=== PATIENT | male | born 1975 | race Caucasian/White ===

== ENCOUNTER 2022-07-17 11:54 | Emergency (ER) | payer MEDICARE, SELFPAY ==
[2022-07-17 12:03] VITALS: BP 108/73; PULSE 83; RESP 16; TEMP 36.7; O2SAT 100
[2022-07-17 12:49] LABS: Basophils # 0.1 10^3/uL (0.0-0.1); Basophils % 0.3 %; Eosinophils # 0.2 10^3/uL (0.0-0.8); Eosinophils % 1.2 %; Hematocrit 45.9 % (42.0-52.0); Hemoglobin 14.9 g/dL (11.7-16.6); Lymphocytes # 2.2 10^3/uL (0.8-4.8); Lymphocytes % 14.9 %; Mean Corpuscular HGB Conc 32.5 g/dL (30.0-36.0); Mean Corpuscular Hemoglobin 31.8 pg (28.0-34.0); Mean Corpuscular Volume 98.1 fl (80-94); Mean Platelet Volume 8.5 fL (7.4-10.4); Monocytes # 0.9 10^3/uL (0.2-0.9); Neutrophils # 11.47 10^3/uL (1.8-7.7); Neutrophils % 77.1 %; Nucleated Red Blood Cells % 0 %; Platelet Count 391 10^3/cmm (130-400); Red Blood Count 4.68 10^6/uL (4.1-5.3); Red Cell Distribution Width 13.3 % (12.1-15.1); White Blood Count 14.9 10^3/uL (4.0-10.0)
[2022-07-17 12:50] LABS: Add Urine Microscopic? NO; Charge for UA Resulting for Rev
[2022-07-17 12:56] LABS: Bilirubin Urine Neg (Negative); Blood Urine Neg (Negative); Glucose Urine UA Norm (Normal); Ketones Urine Negative (Negative); Leukocyte Esterase Urine Negative (Negative); Nitrate Urine Negative (Negative); Protein Urine Neg (Negative); Specific Gravity, Urine 1.015 (1.005-1.030); Urine Appearance Clear (CLEAR); Urine Color Yellow (Yellow); Urobilinogen Urine Norm (Negative); pH Urine 6.5 (5-7)
[2022-07-17 13:11] LABS: Alanine Aminotransferase 9 U/L (0-41); Alkaline Phosphatase 100 U/L (40-130); Anion Gap 14.2 (5-19); Aspartate Amino Transferase 13 U/L (0-40); Blood Urea Nitrogen 13 mg/dL (6-20); Calcium 8.8 mg/dL (8.5-10.5); Carbon Dioxide 25 mmol/L (22-29); Chloride 100 mmol/L (98-107); Globulin 3.1 g/dL (1.3-4.6); Glomerular Filtration Rate 143.2 mL/min (90-130); Glucose 88 mg/dL (65-115); Lipase 22 U/L (13-60); Osmolality Calculated 280 mOsm/kg (285-295); Potassium 4.2 mmol/L (3.5-5.1); Sodium 135 mmol/L (136-145); Total Bilirubin 0.2 mg/dL (0.15-1.2); Total Protein 7.1 g/dL (6.6-8.7)
== END 2022-07-17 14:36 | disposition left against medical advice (07) ==
PROVIDERS: Emergency Medicine; Emergency Provider Family Medicine
DX: Z53.21 Procedure and treatment not carried out due to patient leaving prior to being seen by health care provider (principal); R30.9 Painful micturition, unspecified
CPT/HCPCS: 36415; 80053; 81003; 83690; 85025

== ENCOUNTER → 2022-07-17 14:44 | Outpatient (BNVA) | payer MEDICARE, SELFPAY | PROVIDERS: Visit Provider Emergency Medicine | DX: R31.9 Hematuria, unspecified (principal); R10.9 Unspecified abdominal pain; Z12.5 Encounter for screening for malignant neoplasm of prostate; Z87.19 Personal history of other diseases of the digestive system | CPT/HCPCS: 81000 ==

== ENCOUNTER 2022-07-28 10:37 | Inpatient (IN) | payer MEDICARE, MEDICAID, SELFPAY ==
[2022-07-28] VITALS (8 sets, daily range): BP systolic 113–131; BP diastolic 73–85; PULSE 76–88; RESP 16–18; TEMP 36.8–37.2; O2SAT 95–98; BMI 23.1; BMI 23.7
--- NOTE | 2022-07-28 11:01 | CTR_ITS ---
PROCEDURE INFORMATION: Exam: CTA Chest With Contrast Exam date and time: 07/28/2022 12:10 PM Age: 47 years old Clinical indication: Abdominal pain; Periumbilical; Chest pressure; Additional info: Abd pain TECHNIQUE: Imaging protocol: Computed tomographic angiography of the chest with contrast. 3D rendering (Not supervised by radiologist): MIP and/or 3D reconstructed images were created by the technologist. Radiation optimization: All CT scans at this facility use at least one of these dose optimization techniques: automated exposure control; mA and/or kV adjustment per patient size (includes targeted exams where dose is matched to clinical indication); or iterative reconstruction. Contrast material: OMNI 350; Contrast volume: 95 ml; Contrast route: INTRAVENOUS (IV); COMPARISON: CR (CHEST, ) 07/28/2022 11:05 AM RADIATION DOSE METRICS: Total DLP (mGy-cm): 984.32 FINDINGS: Pulmonary arteries: No evidence of pulmonary embolism to the subsegmental level. Aorta: Unremarkable. No aortic aneurysm. No aortic dissection. Lungs: Mild dependent atelectasis. No consolidation. Pleural spaces: Unremarkable. No pneumothorax. No pleural effusion. Heart: No cardiomegaly. No coronary artery calcification. Lymph nodes: Unremarkable. No enlarged lymph nodes. Bones/joints: No acute or aggressive osseous lesion. Soft tissues: Unremarkable. PROCEDURE INFORMATION: Exam: CT Abdomen And Pelvis With Contrast Exam date and time: 07/28/2022 12:10 PM Age: 47 years old Clinical indication: Abdominal pain; Periumbilical; Chest pressure; Additional info: Abd pain TECHNIQUE: Imaging protocol: Computed tomography of the abdomen and pelvis with contrast. Note that enteric contrast was not given. Radiation optimization: All CT scans at this facility use at least one of these dose optimization techniques: automated exposure control; mA and/or kV adjustment per patient size (includes targeted exams where dose is matched to clinical indication); or iterative reconstruction. Contrast material: OMNI 350; Contrast volume: 95 ml; Contrast route: INTRAVENOUS (IV); COMPARISON: CR (CHEST, ) 07/28/2022 11:05 AM RADIATION DOSE METRICS: Total DLP (mGy-cm): 984.32 FINDINGS: Liver: Normal. No mass. Gallbladder and bile ducts: Normal. No calcified stones. No ductal dilation. Pancreas: Normal. No ductal dilation. Spleen: Normal. No splenomegaly. Adrenal glands: Normal. No mass. Kidneys and ureters: No hydronephrosis. No mass. Stomach and bowel: No obstruction. See Urinary bladder finding. Appendix: No evidence of appendicitis. Intraperitoneal space: See Urinary bladder finding. No pneumoperitoneum. Vasculature: Mild atherosclerotic calcification. No abdominal aortic aneurysm. Lymph nodes: Unremarkable. No enlarged lymph nodes. Urinary bladder: Marked irregular thickening of the bladder dome on the left; there is inflammatory thickening of the adjacent sigmoid colon with intervening fat stranding with small collection of fluid and air measuring approximately 2.7 x 1.5 cm on image 79 series 7 (see also coronal image 21 series 16) suspicious for a colovesical fistula. Reproductive: Unremarkable as visualized. Bones/joints: No acute or aggressive osseous lesion. Soft tissues: Unremarkable. CT/CT angio chest w abd pel w con IMPRESSION: No acute findings. IMPRESSION: Findings suspicious for colovesical fistula in the setting of sigmoid diverticulitis, with 2.7 x 1.5 cm potential developing abscess. Note that underlying malignancy of either the sigmoid or bladder is not excluded on this examination. Recommend referral to general surgery and/or urology.
--- NOTE | 2022-07-28 11:01 | XRR_ITS ---
PROCEDURE INFORMATION: Exam: XR Chest Exam date and time: 07/28/2022 11:05 AM Age: 47 years old Clinical indication: Shortness of breath; Additional info: SOB TECHNIQUE: Imaging protocol: Radiologic exam of the chest. Views: 1 view. COMPARISON: No relevant prior studies available. FINDINGS: Lungs: Unremarkable. No consolidation. Pleural spaces: Unremarkable. No pleural effusion. No pneumothorax. Heart/Mediastinum: Unremarkable. No cardiomegaly. Bones/joints: Unremarkable. XR/XR chest 1V portable [id number] IMPRESSION: No acute findings.
--- NOTE | 2022-07-28 11:01 | ECG_ITS ---
[facility] Test Date: 2022-07-28 Pat Name: Donaldo Montalvo Department: Room: Gender: Male Communications Technician: : 1975 Requested By: Patti Cleveland Order Number: [id number] Marbella MD: Harvey Ferguson M.D. Measurements Intervals [place] Rate: 79 P: 73 VT: 169 QRS: 79 QRSD: 87 T: 77 QT: 396 QTc: 456 Interpretive Statements SINUS RHYTHM No previous ECG available for comparison Electronically Signed On 07-28-2022 17:35:39 CDT by Harvey Ferguson M.D. [id number]
--- NOTE | 2022-07-28 11:01 | CTR_ITS ---
PROCEDURE INFORMATION: Exam: CT Head Without Contrast Exam date and time: 07/28/2022 11:54 AM Age: 47 years old Clinical indication: Pain; Headache; Additional info: IVY TECHNIQUE: Imaging protocol: Computed tomography of the head without contrast. Radiation optimization: All CT scans at this facility use at least one of these dose optimization techniques: automated exposure control; mA and/or kV adjustment per patient size (includes targeted exams where dose is matched to clinical indication); or iterative reconstruction. COMPARISON: No relevant prior studies available. RADIATION DOSE METRICS: Total DLP (mGy-cm): 1091.38 FINDINGS: Brain: Circumscribed rounded 4 mm hyperdense structure within the 4th ventricle to the left of midline measures up to 76 Hounsfield units on coronal image 54 series 7, potentially partially calcified but indeterminate. See also sagittal image 27 series 8 and coronal image 12 series 5. This appears too rounded and well circumscribed to represent hemorrhage. Normal buckley-white differentiation with no evidence of edema or territorial infarct. No extra-axial fluid collection. Cerebral ventricles: As above. No hydrocephalus. Paranasal sinuses: Mucosal thickening in throughout the bilateral ethmoid air cells with partially imaged layering fluid right maxillary sinus. Mastoid air cells: Visualized mastoid air cells are well aerated. Bones/joints: No acute fracture. Soft tissues: Unremarkable. CT/CT head wo con* [id number] IMPRESSION: 1. Indeterminate 4 mm circumscribed rounded hyperdense structure within the 4th ventricle to the left of midline. This may be partially calcified although this cannot be confirmed on this exam. This appears too round and circumscribed to represent hemorrhage. Consider follow-up MRI with and without contrast to better characterize. 2. Mucosal thickening bilateral ethmoid air cells and layering fluid right maxillary sinus, correlate for sinusitis.
[2022-07-28] MEDS: HYDROmorphone 1 mg/mL INJ 1 mL IVP (11:19)
[2022-07-28] MEDS: ondansetron 2 mg/ML SDV 2 mL 4 MG IVP (11:19)
[2022-07-28 11:40] LABS: Basophils % 0.3 %; Eosinophils # 0.2 10^3/uL (0.0-0.8); Eosinophils % 1.8 %; Hematocrit 42.8 % (42.0-52.0); Mean Corpuscular HGB Conc 32.7 g/dL (30.0-36.0); Mean Corpuscular Hemoglobin 31.6 pg (28.0-34.0); Mean Corpuscular Volume 96.6 fl (80-94); Mean Platelet Volume 9.4 fL (7.4-10.4); Monocytes # 1.1 10^3/uL (0.2-0.9); Monocytes % 10.8 %; Neutrophils % 66.8 %; Nucleated Red Blood Cells % 0 %; Platelet Count 384 10^3/cmm (130-400); Red Blood Count 4.43 10^6/uL (4.1-5.3); Red Cell Distribution Width 13.4 % (12.1-15.1)
[2022-07-28 12:03] LABS: INR 0.89 (0.8-1.2)
[2022-07-28 12:08] LABS: Troponin(5th) Baseline 6 ng/L (0-15)
[2022-07-28 12:15] LABS: Add Urine Microscopic? NO; Charge for UA Resulting for Rev
--- NOTE | 2022-07-28 12:15 | W.ED.GENADLT ---
HPI - General Adult General: Chief complaint: General Medical Stated complaint: Low BP, SOB Time Seen by Provider: 07/28/22 10:43 Source: patient Mode of arrival: ambulatory Limitations: no limitations History of Present Illness: 47-year-old male is here with multiple complaints he states has been having lower abdominal pain along with chest pain shortness of breath headaches he states has been going on for weeks. States he is seen by his PCP a week ago informed he could have diverticulitis was written antibiotic he never had any imaging or blood test. States his main pain is in his mid abdomen and he denies any fever denies any worsening proved factors he is in no distress here. Associated symptoms: Reports chest pain, headache(s) and nausea; Deny dyspnea or rash Review of Systems Const: Denies: fever(s), chills, body aches or change in appetite Eyes: Denies: blurry vision or eye discomfort ENMT: Denies: throat pain or dental pain Card: Reports: chest pain Resp: Denies: dyspnea GI: Reports: abdominal pain and nausea : Denies: dysuria Musc: Denies: neck pain or back pain Skin/Breast: Denies: rash Neuro: Reports: headache(s) Psych: Denies: depression John/Lymph: Denies: easy bruising All/Imm: Denies: urticaria PFSH ED PFSH: Medical History (Updated 07/28/22 @ 16:36 by Xochitl Cleveland MD) Diverticulitis Social History (Updated 07/28/22 @ 12:16 by Xochitl Cleveland MD) Substance/Drug Use: unknown Physical Exam Const: COMMON NORMALS: no acute distress, patient oriented x3 and healthy appearing HENMT: COMMON NORMALS: normocephalic and atraumatic HEAD & SCALP: normocephalic and atraumatic Eye: COMMON NORMALS: Equal, round and reactive pupils present and EOMs intact bilaterally PUPIL: Yes Equal, round and reactive pupils present Neck/C-Spine: COMMON NORMALS: full ROM and supple Chest: COMMONS NORMALS: normal inspection of the chest and normal palpation of entire chest wall Resp: COMMON NORMALS: normal respiratory effort, No retractions, No use of accessory muscles and clear to auscultation bilaterally AUSCULTATION: clear to auscultation bilaterally Cardio: COMMON NORMALS: regular rate, regular rhythm and No murmurs present (Cardio) RATE: regular rate RHYTHM: regular rhythm GI: COMMON NORMALS: Normal to inspection, nondistended, normoactive bowel sounds present, Soft to palpation, non-tender and no masses PALPATION: Yes Soft to palpation Extremity: COMMON NORMALS: normal to inspection and full ROM Neuro: COMMON NORMALS: patient oriented x3, moves all extremities and no focal motor deficits Psych: COMMON NORMALS: mental status grossly normal, Normal thought process present and cooperative THOUGHT PROCESS: Normal thought process present Skin: COMMON NORMALS: no rashes or lesions noted and no wounds GENERAL SKIN EXAM: no rashes or lesions noted Course Vital Signs: Vital signs: Vital Signs Pulse Rate 77 07/28/22 15:00 Respiratory Rate 17 07/28/22 15:00 Blood Pressure 119/73 07/28/22 15:00 Pulse Oximetry 98 07/28/22 15:00 Oxygen Delivery Me thod 07/28/22 14:00 MDM - General Adult Medical Decision Making Patient presents here with abdominal pain he was found to have diverticulitis with a possible small abscess with colovesicular fistula. I did speak to urology along with surgery both are consulted patient started on IV antibiotics I spoke to the hospitalist who is admitting. 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 Lab Data : 07/28/22 11:31 07/28/22 11:31 Radiology Impressions Chest X-Ray 07/28/22 11:01 IMPRESSION: No acute findings. Chest/Abdomen/Pelvis CT 07/28/22 11:01 IMPRESSION: No acute findings. IMPRESSION: Findings suspicious for colovesical fistula in the setting of sigmoid diverticulitis, with 2.7 x 1.5 cm potential developing abscess. Note that underlying malignancy of either the sigmoid or bladder is not excluded on this examination. Recommend referral to general surgery and/or urology. ADDENDUM: 07/28/22 8040 Addendum: Findings discussed with and acknowledged by XOCHITL Loredo at 07/28/2022 1:08 PM CDT with any questions answered. Head CT 07/28/22 11:01 IMPRESSION: 1. Indeterminate 4 mm circumscribed rounded hyperdense structure within the 4th ventricle to the left of midline. This may be partially calcified although this cannot be confirmed on this exam. This appears too round and circumscribed to represent hemorrhage. Consider follow-up MRI with and without contrast to better characterize. 2. Mucosal thickening bilateral ethmoid air cells and layering fluid right maxillary sinus, correlate for sinusitis. 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 Interval follow-up is recommended. Laboratory Results WBC 10.0 10^3/uL (4.0-10.0) 07/28/22 11:31 RBC 4.43 10^6/uL (4.1-5.3) 07/28/22 11:31 Hgb 14.0 g/dL (11.7-16.6) 07/28/22 11:31 Hct 42.8 % (42.0-52.0) 07/28/22 11:31 MCV 96.6 fl (80-94) H 07/28/22 11:31 MCH 31.6 pg (28.0-34.0) 07/28/22 11:31 MCHC 32.7 g/dL (30.0-36.0) 07/28/22 11:31 RDW 13.4 % (12.1-15.1) 07/28/22 11:31 Plt Count 384 10^3/cmm (130-400) 07/28/22 11:31 MPV 9.4 fL (7.4-10.4) 07/28/22 11:31 Neut % (Auto) 66.8 % 07/28/22 11:31 Lymph % (Auto) 20.0 % 07/28/22 11:31 [place] % (Auto) 10.8 % 07/28/22 11:31 Eos % (Auto) 1.8 % 07/28/22 11:31 Baso % (Auto) 0.3 % 07/28/22 11:31 Neut # (Auto) 6.70 10^3/uL (1.8-7.7) 07/28/22 11:31 Lymph # (Auto) 2.0 10^3/uL (0.8-4.8) 07/28/22 11:31 [place] # (Auto) 1.1 10^3/uL (0.2-0.9) H 07/28/22 11:31 Eos # (Auto) 0.2 10^3/uL (0.0-0.8) 07/28/22 11:31 Baso # (Auto) 0.0 10^3/uL (0.0-0.1) 07/28/22 11:31 Nucleated RBC % (auto) 0 % 07/28/22 11:31 Nucleated RBCs # 0.0 /100WBC 07/28/22 11:31 PT 12.30 SECONDS (12.1-14.9) 07/28/22 11:31 INR 0.89 (0.8-1.2) 07/28/22 11:31 Sodium 137 mmol/L (136-145) 07/28/22 11:31 Potassium 3.9 mmol/L (3.5-5.1) 07/28/22 11:31 Chloride 103 mmol/L (98-107) 07/28/22 11:31 Carbon Dioxide 21 mmol/L (22-29) L 07/28/22 11:31 Anion Gap 16.9 (5-19) 07/28/22 11:31 BUN 11 mg/dL (6-20) 07/28/22 11:31 Creatinine 0.6 mg/dL (0.7-1.2) L 07/28/22 11:31 GFR Calculation 143.2 mL/min (90-130) H 07/28/22 11:31 Glucose 98 mg/dL (65-115) 07/28/22 11:31 Calculated Osmolality 283 mOsm/kg (285-295) L 07/28/22 11:31 Calcium 8.8 mg/dL (8.5-10.5) 07/28/22 11:31 Total Bilirubin 0.2 mg/dL (0.15-1.2) 07/28/22 11:31 AST 14 U/L (0-40) 07/28/22 11:31 ALT 10 U/L (0-41) 07/28/22 11:31 Alkaline Phosphatase 93 U/L (40-130) 07/28/22 11:31 Troponin T Baseline 6 ng/L (0-15) 07/28/22 11:31 Troponin T 120 Minute 6.00 ng/L (0-15) 07/28/22 13:23 Delta Troponin T 0 ABS# (0-10) 07/28/22 13:23 NT-Pro-B Natriuret Pep 49 pg/mL (0-125) 07/28/22 11:31 Total Protein 7.5 g/dL (6.6-8.7) 07/28/22 11:31 Albumin 3.9 g/dL (3.5-5.2) 07/28/22 11:31 Globulin 3.6 g/dL (1.3-4.6) 07/28/22 11:31 Lipase 21 U/L (13-60) 07/28/22 11:31 Urine Color Yellow (Yellow) 07/28/22 11:31 Urine Appearance Clear (CLEAR) 07/28/22 11:31 Urine pH 6 (5-7) 07/28/22 11:31 Ur Specific [place] 1.010 (1.005-1.030) 07/28/22 11:31 Urine Protein Neg (Negative) 07/28/22 11:31 Urine Glucose (UA) Norm (Normal) 07/28/22 11:31 Urine Ketones Negative (Negative) 07/28/22 11:31 Urine Blood Neg (Negative) 07/28/22 11:31 Urine Nitrate Negative (Negative) 07/28/22 11:31 Urine Bilirubin Neg (Negative) 07/28/22 11:31 Urine Urobilinogen Norm mg/dL (Negative) 07/28/22 11:31 Ur Leukocyte Esterase Negative (Negative) 07/28/22 11:31 EKG Data EKG 1: I personally reviewed and interpreted this EKG as follows: EKG interpretation date: 07/28/22 EKG interpretation time: 11:42 Interpretation: nsr hr [address] or t wave abnormalities qrs 87 qtc 431 Computer generated interpretation: Chest X-Ray 07/28/22 11:01 IMPRESSION: No acute findings. Chest/Abdomen/Pelvis CT 07/28/22 11:01 IMPRESSION: No acute findings. IMPRESSION: Findings suspicious for colovesical fistula in the setting of sigmoid diverticulitis, with 2.7 x 1.5 cm potential developing abscess. Note that underlying malignancy of either the sigmoid or bladder is not excluded on this examination. Recommend referral to general surgery and/or urology. ADDENDUM: 07/28/22 1310 Addendum: Findings discussed with and acknowledged by XOCHITL Loredo at 07/28/2022 1:08 PM CDT with any questions answered. Head CT 07/28/22 11:01 IMPRESSION: 1. Indeterminate 4 mm circumscribed rounded hyperdense structure within the 4th ventricle to the left of midline. This may be partially calcified although this cannot be confirmed on this exam. This appears too round and circumscribed to represent hemorrhage. Consider follow-up MRI with and without contrast to better characterize. 2. Mucosal thickening bilateral ethmoid air cells and layering fluid right maxillary sinus, correlate for sinusitis. 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 Interval follow-up is recommended. Discharge Plan Discharge Patient Disposition: Admitted As Inpatient Clinical Impression: Diverticulitis, [place]-vesical fistula Prescriptions: No Action amoxicillin-pot clavulanate 875-125 mg tablet 1 tab PO BID 10 Days Qty: 20 0RF ibuprofen 200 mg Capsule 1,600 mg PO TID PRN (Reason: Pain) Coding Level of Care Code ED Folder Seamer Automatic for Chg Fwd Exam Comprehensive
[2022-07-28] MEDS: iohexol 350 mg/mL 100 mL Btl IV (12:19)
[2022-07-28 12:23] LABS: Bilirubin Urine Neg (Negative); Blood Urine Neg (Negative); Glucose Urine UA Norm (Normal); Ketones Urine Negative (Negative); Leukocyte Esterase Urine Negative (Negative); Nitrate Urine Negative (Negative); Protein Urine Neg (Negative); Urine Appearance Clear (CLEAR); Urine Color Yellow (Yellow); Urobilinogen Urine Norm (Negative); pH Urine 6 (5-7)
[2022-07-28 12:25] LABS: Alanine Aminotransferase 10 U/L (0-41); Albumin Level 3.9 g/dL (3.5-5.2); Alkaline Phosphatase 93 U/L (40-130); Anion Gap 16.9 (5-19); Aspartate Amino Transferase 14 U/L (0-40); Blood Urea Nitrogen 11 mg/dL (6-20); Calcium 8.8 mg/dL (8.5-10.5); Carbon Dioxide 21 mmol/L (22-29); Chloride 103 mmol/L (98-107); Globulin 3.6 g/dL (1.3-4.6); Glomerular Filtration Rate 143.2 mL/min (90-130); Glucose 98 mg/dL (65-115); Lipase 21 U/L (13-60); NT Pro B Type Natriuretic Pept 49 pg/mL (0-125); Osmolality Calculated 283 mOsm/kg (285-295); Potassium 3.9 mmol/L (3.5-5.1); Sodium 137 mmol/L (136-145); Total Bilirubin 0.2 mg/dL (0.15-1.2); Total Protein 7.5 g/dL (6.6-8.7)
--- NOTE | 2022-07-28 12:42 | MRR_ITS ---
PROCEDURE INFORMATION: Exam: MR Head Without Contrast Exam date and time: 07/28/2022 2:39 PM Age: 47 years old Clinical indication: Abnormal findings; Abnormal radiologic findings of head/skull; Not specified; Patient HX: Radiologist recommended per CT report; Additional info: CATA TECHNIQUE: Imaging protocol: Magnetic resonance imaging of the head without contrast. COMPARISON: CT head wo con* [id number] 07/28/2022 11:54 AM FINDINGS: Brain: No hemorrhage, mass effect or midline shift. No white matter abnormality identified. No evidence of restricted diffusion to suggest acute/subacute infarct. No intra-axial or extra-axial fluid collection seen. Cerebral ventricles: Within the inferior left 4th ventricle/area of hyperdense lesion identified on CT head, there is a 3 mm focus demonstrating T1 isointense signal, mild T2 hyperintense signal, minimal increased signal on DWI images, minimal decreased signal in ADC map, minimal low signal on SWI images, and no enhancement. Bones/joints: Unremarkable. Paranasal sinuses: Pansinus mucosal thickening is present. Mastoid air cells: Normal as visualized. No mastoid effusion. Orbital cavities: Unremarkable. Soft tissues: Unremarkable. 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 Interval follow-up is recommended.
[2022-07-28] MEDS: aztreonam 2,000 MG in sodium chloride 0.9% (plus) 100 ML 200 MG IV (13:52)
[2022-07-28 14:50] LABS: Troponin 5 2HR Delta 0 ABS# (0-10)
[2022-07-28] MEDS: gadobenate dimeglumine 20 mL vial IV (14:58)
[2022-07-28] MEDS: metroNIDAZOLE IV 500 MG/100 ML PREMIX 100 MG IV (15:29)
--- NOTE | 2022-07-28 16:05 | P.CONIM_ITS ---
Providers/Reason For Consult Consulting Physician/Specialty*: Jeff Landeros/Gen Surg Reason for Consult*: Abdominal pain History of Present Illness History of Present Illness Donaldo Montalvo is a 47 year old male He is legally blind. History of iritis for about 20 years, he has only minimal central vision in the left eye. History of diverticulitis for about 10 years. He was in the hospital several times, he can describe at least 4 severe episodes that he was treated for diverticulitis before. He never had a colonoscopy. His father had a history of rectal cancer. At age 70. Received chemo and surgery, likely adenocarcinoma This current episode started about 4 months ago. He was complaining of abdominal pain, nausea, painful urination. He was living in [place] and was not able to receive any medical care. His condition was getting progressively worse. Eventually, his sister was able to move him to [place]. He was recently started on antibiotics, however, his condition was rapidly deteriorating and he decided to seek medical attention. He is having multiple bowel movements throughout the day, they are very small. No blood in the stool. He has poor oral hygiene. History of neck abscesses in the past. He is also having some pain in his neck on the left. He smokes tobacco, but drinks alcohol He is accompanied today by his sister and her Review of Systems Narrative: 10 point review of systems is negative except as per HPI Medications/Allergies Home Medications Medication Instructions Recorded Confirmed Last Taken Type amoxicillin 875 mg-potassium 1 tab PO BID 10 days #20 tabs 07/19/22 07/28/22 07/28/22 Rx clavulanate 125 mg tablet ibuprofen 200 mg capsule 1,600 mg PO TID PRN Pain 07/28/22 07/28/22 07/28/22 History Allergies Allergy/AdvReac Type Severity Reaction Status Date / Time ciprofloxacin Allergy Severe ADR-Halluci Verified 07/17/22 12:03 nating PFS Acute PFSH: Medical History (Updated 07/28/22 @ 16:11 by Jeff Landeros MD) Diverticulitis Social History (Updated 07/28/22 @ 12:16 by Patti Cleveland MD) Substance/Drug Use: unknown Vitals/I&O/Wt Last Vital Signs Pulse 77 07/28/22 15:00 Resp 17 07/28/22 15:00 BP 119/73 07/28/22 15:00 Pulse Ox 98 07/28/22 15:00 O2 Del Method 07/28/22 14:00 07/28/22 07/28/22 07/28/22 06:59 14:59 22:59 Intake Total 100 / 100 Balance 100 / 100 Weight last 48 hrs Weight 180 lb Physical Exam Narrative: General: No acute distress Psych: [AAOx3] Eyes: [sclerae are white] Head/ENT: [normocephalic, symmetric] CV: [regular] pulse, [tachychardic], no JVD Lungs: [symmetrical chest rise] Abdomen: [soft, ND, tender to palpation in the lower quadrants. No peritoneal signs. No palpable masses.] Ext: [no obvious traumatic deformities] Skin: warm Data : 07/28/22 11:31 07/28/22 11:31 Micro: Microbiology 07/28/22 13:27 Blood Culture - Preliminary Blood SPECIMEN COLLECTED 07/28/22 13:23 Blood Culture - Preliminary Blood SPECIMEN COLLECTED Other data: I personally reviewed CT scan images and radiology report. Consistent with acute diverticulitis versus malignancy in the location of the mid sigmoid/bladder contact. No free air. Small abscesses present. No not much intraperitoneal fluid around to suggest perforation. I do not see any air in the bladder. Report of the CT scan of the head showed a 4 mm lesion, MRI is pending to rule out malignancy. A&P Assessment and plan (1) Acute diverticulitis: Status: Acute (2) Cystitis: Status: Acute (3) Legally blind: Status: Acute (4) Poor oral hygiene: Status: Acute Plan This is at least fourth of fifth episodes of acute diverticulitis. Now severe inflammation between the gallbladder and sigmoid. No evidence of perforation. First step will be to manage the patient with IV antibiotics to cool the pathologic process down. No indications for emergent surgery at this time. His abdomen is soft and he has no peritoneal signs. He has normal white blood cell count. His heart rate is 77 and blood pressure 119/73. No evidence of septic shock as well. If patient responds to treatment with antibiotics, the next step will be a limited endoscopy to rule out malignancy in the large intestine. I do not see any colovesical fistula right now, however, I think urology consult is necessary to perform cystoscopy and evaluate the bladder to rule out malignancy. Results of the MRI pending to rule out malignancy. In case the lesion is real, it may represent metastasis versus infectious origin. Given his history of a bscesses in the neck as well as diverticulitis, septic emboli are possible. -Zosyn IV, n.p.o., okay for ice with sips of water and meds, Lovenox for DVT prophylaxis -CBC tomorrow a.m. -Urology consult I discussed the diagnosis, natural history of diverticulitis with the patient, and his family. All questions were answered.. Patient agreed to proceed with the plan as outlined above. I also explained the patient that my assignment ends tomorrow and another surgeon will be seeing and taking care of him Coding Level of Care Code Acute Training And Development Director for nikita Arrington Diagnoses Acute diverticulitis K57.92 Cystitis N30.90 Legally blind H54.8 Poor oral hygiene Z91.89
--- NOTE | 2022-07-28 16:16 | ECG_ITS ---
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 Measurements Intervals [place] Rate: 79 P: 73 VA: 168 QRS: 80 QRSD: 89 T: 75 QT: 396 QTc: 454 Interpretive Statements SINUS RHYTHM Compared to ECG 07/28/2022 11:42:21 No significant changes Electronically Signed On 07-28-2022 17:38:33 CDT by Harvey Ferguson M.D. [email or web address]
--- NOTE | 2022-07-28 17:36 | P.HP_ITS ---
Providers/Chief Complaint Admitting Physician: Chaim Montgomery MD Chief Complaint: Low BP, SOB History of Present Illness Donaldo Montalvo is a 47 year old male with past medical history of iritis , legally blind , past history of recurrent diverticulitis started about 10 years back in the last 4 months has worsened significantly with recurrent hospitalization at least 3 treated with IV antibiotics, came in today with chief complaint of wor sening lower abdominal pain ,nausea, patient to tell us that occasionally he has painful urination, but has not been diagnosed with recurrent polymicrobial UTI, denies any foul-smelling urine, bloody urine ,recent fever chills. No prior colonoscopy, father has history of rectal cancer. Patient is also complaining of multiple bowel movements throughout the day in the recent few days.patient denies any IV drug use, he does smoke. He was initially living in [place] and since he was not getting appropriate medical care he moved to [place] to his sister's house. Upon arrival in the ER he was worked up for above-mentioned complaint: Pertinent imaging studies done in the ER: CT head wo con: Indeterminate 4 mm circumscribed rounded hyperdense structure within the 4th ventricle to the left of midline. This may be partially calcified although this cannot be confirmed on this exam. This appears too round and circumscribed to represent hemorrhage. Consider follow-up MRI with and without contrast to better characterize. 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 CT angio chest w abd pel w con: Marked irregular thickening of the bladder dome on the left; there is inflammatory thickening of the adjacent sigmoid colon with intervening fat stranding with small collection of fluid and air measuring approximately 2.7 x 1.5 cm suspicious for a colovesical fistula. Pertinent labs: WBC 10, H&H 14/ 42 PLT: 384 , sodium 137 potassium 3.9, BUN /SCR : 09/15 , u rinalysis clean Review of Systems General: Reports: 10 or more systems reviewed and unremarkable except in HPI and below Const: Denies: fever(s), chills, body aches, change in appetite or diaphoresis Card: Denies: palpitations, edema, swelling of feet/ankles, dyspnea on exertion, orthopnea or leg pain with exertion Resp: Denies: dyspnea, productive cough, wheezing or pain on inspiration GI: Reports: abdominal pain and nausea; Denies: vomiting, diarrhea or constipation : Reports: difficulty urinating; Denies: flank pain Musc: Denies: back pain, extremity pain or extremity swelling Neuro: Denies: headache(s), difficulty walking or confusion Medications/Allergies Home Medications Medication Instructions Recorded Confirmed Last Taken Type amoxicillin 875 mg-potassium 1 tab PO BID 10 days #20 tabs 07/19/22 07/28/22 07/28/22 Rx clavulanate 125 mg tablet ibuprofen 200 mg capsule 1,600 mg PO TID PRN Pain 07/28/22 07/28/22 07/28/22 History Allergies Allergy/AdvReac Type Severity Reaction Status Date / Time ciprofloxacin Allergy Severe ADR-Halluci Verified 07/17/22 12:03 nating PFSH Acute PFSH: Medical History (Updated 07/28/22 @ 16:36 by Patti Cleveland MD) Diverticulitis Social History (Updated 07/28/22 @ 12:16 by Patti Cleveland MD) Substance/Drug Use: unknown Vitals/I&O/Wt Last Vital Signs Pulse 77 07/28/22 15:00 Resp 17 07/28/22 15:00 BP 125/80 07/28/22 16:30 Pulse Ox 95 07/28/22 16:30 O2 Del Method 07/28/22 14:00 07/28/22 07/28/22 07/28/22 06:59 14:59 22:59 Intake Total 100 / 100 100 / 200 Balance 100 / 100 100 / 200 Weight last 48 hrs Weight 81.647 kg Physical Exam Const: COMMON NORMALS: patient oriented x3 Resp: COMMON NORMALS: normal respiratory effort, No retractions, No use of accessory muscles and clear to auscultation bilaterally EFFORT & INSPECTION: Yes symmetric chest movement AUSCULTATION: clear to auscultation bilaterally Cardio: COMMON NORMALS: regular rate, regular rhythm, S1 normal heart sound present, S2 normal heart sound present, No gallops present (Cardio), No murmurs present (Cardio), No rub (Cardio) and Peripheral pulses 2+ throughout RATE: regular rate RHYTHM: regular rhythm HEART SOUNDS: S1 normal heart sound present and S2 normal heart sound present PERIPHERAL PULSES: Peripheral pulses 2+ throughout GI: COMMON NORMALS: Normal to inspection, nondistended, normoactive bowel sounds present, Soft to palpation, non-tender, No hepatosplenomegaly present and no masses AUSCULTATION: Yes normoactive bowel sounds PALPATION: Yes Soft to palpation and Yes No hepatosplenomegaly present RECTAL EXAM: Yes deferred Extremity: COMMON NORMALS: no clubbing, cyanosis or edema and no pedal edema Neuro: COMMON NORMALS: patient oriented x3 Data : 07/28/22 11:31 07/28/22 11:31 Micro: Microbiology 07/28/22 13:27 Blood Culture - Preliminary Blood SPECIMEN COLLECTED 07/28/22 13:23 Blood Culture - Preliminary Blood SPECIMEN COLLECTED A&P Assessment and plan (1) [place]-vesical fistula: Status: Acute (2) Legally blind: Status: Acute (3) Acute diverticulitis: Status: Acute Plan 47 year old male with past medical history of iritis , legally blind , past history of recurrent diverticulitis started about 10 years back in the last 4 months has worsened significantly with recurrent hospitalization at least 3 treated with IV antibiotics, came in today with chief complaint of worsening lower abdominal pain ,nausea, patient to tell us that occasionally he has painful urination, but has not been diagnosed with recurrent polymicrobial UTI, denies any foul-smelling urine, bloody urine ,recent fever chills. No prior colonoscopy, father has history of rectal cancer. Patient is also complaining of multiple bowel movements throughout the day in the recent few days.patient denies any IV drug use, he does smoke. Assessment: Recurrent diverticulitis ??? Colovesical fistula History of iritis Legally blind Plan: Continue IV antibiotics Follow blood culture Follow stool studies Pain control Surgery on board Urology on board CODE STATUS: Full code DVT prophylaxis: On Lovenox Attestations Medical Necessity Statement*: Patient in hospital for management of diverticulitis. Need for IV antibiotics, anticipated length of stay greater than 2 midnights. Time Spent in Patient Care: Greater than 35 minutes (>than 50% of time spent in counselling and/or direct pt care on unit) . Coding Level of Care Code Acute Stair Builder for Chg Fwd Exam Detailed Diagnoses [place]-vesical fistula N32.1 Legally blind H54.8 Acute diverticulitis K57.92
--- NOTE | 2022-07-28 18:05 | ECG_ITS ---
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 Measurements Intervals Thayer Rate: 73 P: 70 TX: 161 QRS: 83 QRSD: 95 T: 75 QT: 400 QTc: 443 Interpretive Statements SINUS RHYTHM Compared to ECG 07/28/2022 16:16:14 No significant changes Electronically Signed On 07-29-2022 7:37:55 CDT by Harvey Ferguson M.D. [id number]
[2022-07-28] MEDS: enoxaparin 30 mg/0.3 mL Syringe SUBCUT (18:09)
[2022-07-28] MEDS: sodium chloride 0.9% 1,000 ML 75 ML IV (18:09)
[2022-07-28] MEDS: famotidine 20 mg/2 mL INJ IVP (18:10)
[2022-07-28 18:23] LABS: Troponin 5 6HR Delta 0 ng/L (0-12)
[2022-07-28] MEDS: acetaminophen 325 mg Tablet 650 MG PO (20:44)
[2022-07-28] MEDS: morphine 4 mg/mL SDV 1 mL 2 MG IVP (21:23)
[2022-07-29] VITALS (7 sets, daily range): BP systolic 94–124; BP diastolic 55–77; PULSE 65–91; RESP 17–18; TEMP 36.4–36.8; O2SAT 90–99
[2022-07-29 04:53] LABS: Basophils % 0.5 %; Eosinophils # 0.3 10^3/uL (0.0-0.8); Eosinophils % 4.2 %; Hematocrit 47.8 % (42.0-52.0); Hemoglobin 14.5 g/dL (11.7-16.6); Lymphocytes # 1.7 10^3/uL (0.8-4.8); Lymphocytes % 28.8 %; Mean Corpuscular HGB Conc 30.3 g/dL (30.0-36.0); Mean Corpuscular Hemoglobin 30.9 pg (28.0-34.0); Mean Corpuscular Volume 101.7 fl (80-94); Mean Platelet Volume 9.1 fL (7.4-10.4); Monocytes # 0.7 10^3/uL (0.2-0.9); Monocytes % 11.2 %; Neutrophils # 3.28 10^3/uL (1.8-7.7); Neutrophils % 54.8 %; Nucleated Red Blood Cells % 0 %; Platelet Count 335 10^3/cmm (130-400); Red Cell Distribution Width 13.4 % (12.1-15.1)
[2022-07-29 05:05] LABS: INR 0.94 (0.8-1.2)
[2022-07-29] MEDS: acetaminophen 325 mg Tablet 650 MG PO (05:12)
[2022-07-29 05:19] LABS: Alanine Aminotransferase 9 U/L (0-41); Albumin Level 3.3 g/dL (3.5-5.2); Alkaline Phosphatase 82 U/L (40-130); Anion Gap 13.2 (5-19); Aspartate Amino Transferase 12 U/L (0-40); Blood Urea Nitrogen 8 mg/dL (6-20); Calcium 8.7 mg/dL (8.5-10.5); Carbon Dioxide 22 mmol/L (22-29); Chloride 103 mmol/L (98-107); Globulin 3.5 g/dL (1.3-4.6); Glomerular Filtration Rate 143.2 mL/min (90-130); Glucose 91 mg/dL (65-115); Osmolality Calculated 276 mOsm/kg (285-295); Potassium 4.2 mmol/L (3.5-5.1); Sodium 134 mmol/L (136-145); Total Bilirubin 0.5 mg/dL (0.15-1.2); Total Protein 6.8 g/dL (6.6-8.7)
[2022-07-29] MEDS: famotidine 20 mg/2 mL INJ IVP ×2 (05:54→19:03)
[2022-07-29] MEDS: sodium chloride 0.9% 1,000 ML 75 ML IV ×2 (09:42→23:49)
[2022-07-29] MEDS: morphine 4 mg/mL SDV 1 mL 2 MG IVP (09:49)
[2022-07-29] MEDS: ketorolac 30 mg/mL INJ 15 MG IVP ×2 (14:30→21:46)
[2022-07-29] MEDS: acetaminophen 1,000 MG/100 ML PIGGYBACK 400 MG IV ×2 (16:40→22:50)
[2022-07-29] MEDS: piperacillin-tazobactam 3.375 GM in sodium chloride 0.9% (plus) 50 ML IV ×2 (16:41→22:50)
--- NOTE | 2022-07-29 16:48 | P.PN_ITS ---
Subjective Subjective: Patient overall seems to be doing well and tolerating slowly p.o. intake. No evidence of sepsis at the moment. Patient was seen and examined today Medications: Reviewed: Yes Vitals/I&O/Wt Last Vital Signs Temp 98.3 F 07/29/22 12:00 Pulse 76 07/29/22 12:00 Resp 18 07/29/22 12:00 BP 124/74 07/29/22 12:00 Pulse Ox 95 07/29/22 12:00 O2 Del Method 07/29/22 12:00 07/29/22 07/29/22 07/29/22 06:59 14:59 22:59 Intake Total 100 / 400 1100 / 1100 Balance 100 / 400 1100 / 1100 Weight last 48 hrs Weight 184 lb 11.2 oz Weight 180 lb Physical Exam Narrative: Patient is conscious alert oriented X3 No apparent distress BMI 24 Head and neck examination PERRLA no masses no cervical lymphadenopathy no jaundice Cardiac examination audible S1-S2 no murmurs no gallops no arrhythmias Chest is clear bilateral,abscence of Rhonchi or wheezes,no surgical emphysema Abdomen nontender nondistended soft no organomegaly guarding or rigidity/no signs of peritonitis Extremities no cyanosis no clubbing no edema Data : 07/29/22 04:23 07/29/22 04:23 Micro: Microbiology 07/28/22 13:23 Blood Culture - Preliminary Blood NEGATIVE TO DATE 07/28/22 13:27 Blood Culture - Preliminary Blood NEGATIVE TO DATE A&P Assessment and plan (1) Diverticulitis of large intestine with complication: After thorough history physical examination and reviewing the chart and images with my personal interpretation, likely the patient has an underlying phlegmon between the sigmoid colon and the bladder. Which can end up by fistula formation. My recommendation from surgical standpoint of view is to have the patient undergo a colonoscopy in 6 to 8 weeks from this episode after the infection is being controlled and inflammation subsides. We will continue coordinating care with urology and hospital services. Patient can have clear liquid diet for now And will follow on his clinical progress, as I believe down the road patient will benefit from laparoscopic sigmoid colectomy possible open with coordinating surgical care with urology service for potential combined intervention for colovesical fistula repair should to develop. Thank you for consulting general surgery to participate taking care . Status: Acute Attestations Medical Necessity Statement*: Per admitting service Coding Level of Care Code Acute Cross Country Coach for Chg Fwd Diagnoses Diverticulitis of large intestine with complication K57.32
--- NOTE | 2022-07-29 17:15 | PM.PN ---
Subjective Subjective: Complains of abdominal pain intermittently and also pain while urinating. However feels hungry today. Wishes to attempt a diet. He is stable hemodynamically. Afebrile. Medications: Reviewed: Yes Vitals/I&O/Wt Last Vital Signs Temp 98.0 F 07/29/22 16:00 Pulse 65 07/29/22 16:00 Resp 18 07/29/22 16:00 BP 94/55 07/29/22 16:00 Pulse Ox 97 07/29/22 16:00 O2 Del Method 07/29/22 16:00 07/29/22 07/29/22 07/29/22 06:59 14:59 22:59 Intake Total 100 / 400 1100 / 1100 Balance 100 / 400 1100 / 1100 Weight last 48 hrs Weight 83.779 kg Weight 81.647 kg Physical Exam Narrative: General: No acute distress, AO x2 Chest: Normal vesicular breath sounds, no added sounds, equal good air entry bilaterally CVS: S1-S2 regular, no murmurs, no tachycardia, no gallops, no rubs Abdomen: Soft, nontender, no organomegaly, bowel sounds present Neuro: No focal deficits, no facial deformity, AO x3, power 5/5 in all limbs Data : 07/29/22 04:23 07/29/22 04:23 Micro: Microbiology 07/28/22 13:23 Blood Culture - Preliminary Blood NEGATIVE TO DATE 07/28/22 13:27 Blood Culture - Preliminary Blood NEGATIVE TO DATE A&P Assessment and plan (1) [place]-vesical fistula: This is a suspected diagnosis Status: Acute (2) 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 Will need follow-up with ophthalmology as outpatient, sisters prefers to complete this as outpatient. Status: Acute (3) Acute diverticulitis: Status: Acute (4) Cystitis: Status: Acute Plan 47 year old male with past medical history of iritis , legally blind , past history of recurrent diverticulitis started about 10 years back in the last 4 months has worsened significantly with recurrent hospitalization at least 3 treated with IV antibiotics, came in with chief complaint of worsening lower abdominal pain ,nausea. CT of the abdomen showed significant inflammation between the sigmoid colon and the bladder. Findings are suspicious for inflammatory phlegmon from diverticulitis versus possible colovesical fistula. No air is however seen within the tract therefore colovesical fistula is currently only a suspected diagnosis. Patient is currently receiving treatment with IV antibiotics with plan for colonoscopy 6 to 8 weeks down the line to further assess his colonic anatomy. Differentials include but are not limited to diverticulitis, underlying malignancy versus inflammatory bowel disease given his young age and also history of iritis. Discussed with X extensively that colonoscopy at this time carries a high risk of perforation therefore optimal to treat with IV antibiotics for now and then follow-up within 6 to 8 weeks for interval colonoscopy. Discontinue imipenem, change antibiotics to piperacillin tazobactam. Patient is hungry, trial of clear liquid diet today. He is passing flatus, has not had a bowel movement yet. Awaiting C. difficile testing. Awaiting evaluation by urology, plan for possible cystoscopy in the a.m. N.p.o. postmidnight for the same. Initial consult note mentions a history of recurrent neck abscesses, this is clarified with the patient. Patient reports multiple odontogenic and periodontal infections. He has extremely poor dentition. He has not formally ever been diagnosed with neck abscesses. He has swelling around his mandibles which per his description appear more to be palpable lymph nodes versus inflamed saliva gland rather than true abscesses. Add nicotine patch, patient is a chronic daily smoker. Added additionally Tessalon pearls for persistent cough. Chest x-ray is without acute findings. Check rapid COVID antigen given persistent coughing. CODE STATUS: Full code DVT prophylaxis: On Lovenox Attestations Medical Necessity Statement*: Ongoing need for IV antibiotics, pain management, trial of clear liquid diet today Coding Level of Care Code Acute Supervisor Pipe Manufacture for g Fwd Diagnoses [place]-vesical fistula N32.1 Legally blind H54.8 Acute diverticulitis K57.92 Cystitis N30.90
--- NOTE | 2022-07-29 18:12 | P.CONIM_ITS ---
Providers/Reason For Consult Consulting Physician/Specialty*: Urology/[place] Reason for Consult*: Bladder changes on CT Requesting Physician: Dr. Montgomery Attending Physician: Chaim Montgomery MD History of Present Illness History of Present Illness Donaldo Montalvo is a 47 year old male admitted for diverticulitis worsening on oral antibiotics. Typical GI /abdominal symptoms with some complaints of urinary urgency/frequency beyond baseline voiding. He reports at least 3-4 episodes of diverticulitis requiring hospitalization when he was living in [place]. He thinks he might of had a CT scan had not been able to obtain a colonoscopy. He has noticed at least once where he passed something in his urine but was hard for him to identify due to his very poor eyesight. He did take a picture and it looks to me like some blood clots. No gross evidence of fecaluria. He reports that he always improved when he took antibiotics. Work up: * CT showing likely early abscess abutting the bladder. No air in bladder. Bladder wall is dramatically thickened. No evidence of perforation. * UA is normal today and on 07/17/22 as well. * WBC mildly elevated * No clinical findings of sepsis. Treatment: Antibiotics and supportive care. I have personally reviewed the CT and agree that while a fistula is not ruled out there is no obvious connection or air. In addition with a fistula the Urine is generally grossly infected. Review of Systems Const: Denies: fever(s) Eyes: Reports: change in vision (SEVERE deficits, blind); Denies: eye redness ENMT: Denies: throat pain Card: Denies: chest pain or palpitations Resp: Denies: dyspnea or wheezing GI: Reports: abdominal pain, nausea, bloating and GI cramping; Denies: vomiting : Reports: dysuria (Intermittently.) Skin/Breast: Denies: new lesions Neuro: Denies: confusion, behavioral changes or Slurred speech present Psych: Reports: anxiety; Denies: memory loss Endo: Denies: flushing John/Lymph: Denies: easy bruising or easy bleeding All/Imm: Denies: urticaria or acute wheezing Medications/Allergies Home Medications Medication Instructions Recorded Confirmed Last Taken Type amoxicillin 875 mg-potassium 1 tab PO BID 10 days #20 tabs 07/19/22 07/28/22 07/28/22 Rx clavulanate 125 mg tablet ibuprofen 200 mg capsule 1,600 mg PO TID PRN Pain 07/28/22 07/28/22 07/28/22 History Allergies Allergy/AdvReac Type Severity Reaction Status Date / Time ciprofloxacin Allergy Severe ADR-Halluci Verified 07/17/22 12:03 nating Current Medications Generic Name Dose Route Start Last Admin Trade Name Freq PRN Reason Stop Dose Admin Enoxaparin Sodium 30 mg 07/28/22 18:30 07/28/22 18:09 Enoxaparin 30 Mg/0.3 Ml Syringe SUBCUT 30 mg Q24H MARCELINO Administration Famotidine 20 mg 07/28/22 18:30 07/28/22 18:10 Famotidine 20 Mg/2 Ml Inj IVP 20 mg Q12H MARCELINO Administration Sodium Chloride 1,000 mls @ 75 mls/hr 07/28/22 17:30 07/28/22 18:09 Sodium Chloride 0.9% IV 75 mls/hr .[id number] MARCELINO Administration Imipenem/Cilastatin Sodium 500 100 mls @ 200 mls/hr 07/28/22 18:00 07/28/22 18:38 mg/ Sodium Chloride IV Infused Q6H MARCELINO Infusion Protocol PFSH Acute PFSH: Medical History Diverticulitis Social History Substance/Drug Use: unknown Vitals/I&O/Wt Last Vital Signs Temp 99.0 F 07/28/22 17:30 Pulse 76 07/28/22 17:30 Resp 16 07/28/22 17:30 BP 113/76 07/28/22 17:30 Pulse Ox 96 07/28/22 17:30 O2 Del Method 07/28/22 18:01 07/28/22 07/28/22 07/28/22 06:59 14:59 22:59 Intake Total 100 / 100 200 / 300 Balance 100 / 100 200 / 300 Weight last 48 hrs Weight 184 lb 11.2 oz Weight 180 lb Physical Exam Const: COMMON NORMALS: no acute distress, alert and well nourished GENERAL APPEARANCE: well kempt and well developed ORIENTATION/CONSCIOUSNESS: not confused HENMT: COMMON NORMALS: normocephalic HEAD & SCALP: normal to inspection and normocephalic Eye: COMMON NORMALS: conjunctivae normal and no scleral icterus CONJUNCTIVA: Yes conjunctivae normal Neck/C-Spine: GENERAL: Yes normal visual inspection Resp: COMMON NORMALS: normal respiratory effort EFFORT & INSPECTION: Yes able to speak in complete sentences, No labored and No Actively coughing Extremity: COMMON NORMALS: no clubbing, cyanosis or edema Neuro: COMMON NORMALS: no focal motor deficits SENSORIUM/ORIENTATION: Yes alert Psych: COMMON NORMALS: mental status grossly normal APPEARANCE: Yes grossly normal and Yes well kempt ATTITUDE: Yes calm and Yes engaged Skin: COMMON NORMALS: no rashes or lesions noted and no jaundice GENERAL SKIN EXAM: no rashes or lesions noted Data : 07/29/22 04:23 07/29/22 04:23 Micro: Microbiology 07/28/22 13:27 Blood Culture - Preliminary Blood SPECIMEN COLLECTED 07/28/22 13:23 Blood Culture - Preliminary Blood SPECIMEN COLLECTED A&P Assessment and plan (1) Diverticulitis of large intestine with abscess: Status: Acute (2) Bladder wall thickening: No clear evidence on the CT scan of a colovesical fistula but could not rule it out. He did state that historically he did pass something that look like blood per urethra. Status: Acute (3) Diverticulitis: Status: Acute Plan 1. Bedside flexible cystoscopy tomorrow probably around noon 2. We will coordinate with general surgery but looks like urologic involvement will be necessary for the bladder during partial colectomy. Consult Attestations Medical Necessity Statement: Attending Coding Level of Care Code Acute [employer]ospace Control And Warning Systems for [facility] Diagnoses Diverticulitis of large intestine with abscess K57.20 Bladder wall thickening N32.89 Diverticulitis K57.92
--- NOTE | 2022-07-29 23:03 | PC.NURSE ---
patient refused Covid test. stated that will just wake me up
[2022-07-30] VITALS (10 sets, daily range): BP systolic 90–129; BP diastolic 53–81; PULSE 67–79; RESP 14–18; TEMP 36.4–36.9; O2SAT 95–98
[2022-07-30] MEDS: morphine 4 mg/mL SDV 1 mL 2 MG IVP ×3 (02:40→22:52)
[2022-07-30] MEDS: acetaminophen 1,000 MG/100 ML PIGGYBACK 400 MG IV ×3 (06:54→22:21)
[2022-07-30] MEDS: piperacillin-tazobactam 3.375 GM in sodium chloride 0.9% (plus) 50 ML IV ×3 (06:55→22:53)
[2022-07-30] MEDS: ketorolac 30 mg/mL INJ 15 MG IVP ×3 (07:01→22:21)
[2022-07-30] MEDS: famotidine 20 mg/2 mL INJ IVP ×2 (07:02→18:44)
[2022-07-30 07:48] LABS: Alanine Aminotransferase 8 U/L (0-41); Albumin Level 3.6 g/dL (3.5-5.2); Alkaline Phosphatase 84 U/L (40-130); Aspartate Amino Transferase 15 U/L (0-40); Blood Urea Nitrogen 8 mg/dL (6-20); Calcium 9.2 mg/dL (8.5-10.5); Carbon Dioxide 25 mmol/L (22-29); Chloride 105 mmol/L (98-107); Globulin 3.8 g/dL (1.3-4.6); Glomerular Filtration Rate 143.2 mL/min (90-130); Glucose 90 mg/dL (65-115); Osmolality Calculated 282 mOsm/kg (285-295); Sodium 137 mmol/L (136-145); Total Bilirubin 0.5 mg/dL (0.15-1.2); Total Protein 7.4 g/dL (6.6-8.7)
[2022-07-30 07:49] LABS: Anion Gap 11.3 (5-19); Potassium 4.3 mmol/L (3.5-5.1)
[2022-07-30 08:05] LABS: Basophils % 0.5 %; Eosinophils # 0.2 10^3/uL (0.0-0.8); Eosinophils % 2.8 %; Hematocrit 48.8 % (42.0-52.0); Hemoglobin 15.2 g/dL (11.7-16.6); Lymphocytes # 1.7 10^3/uL (0.8-4.8); Lymphocytes % 29.5 %; Mean Corpuscular HGB Conc 31.1 g/dL (30.0-36.0); Mean Corpuscular Hemoglobin 31.6 pg (28.0-34.0); Mean Corpuscular Volume 101.5 fl (80-94); Mean Platelet Volume 9.1 fL (7.4-10.4); Monocytes # 0.6 10^3/uL (0.2-0.9); Monocytes % 10.5 %; Neutrophils # 3.16 10^3/uL (1.8-7.7); Neutrophils % 56.3 %; Nucleated Red Blood Cells % 0 %; Platelet Count 344 10^3/cmm (130-400); Red Blood Count 4.81 10^6/uL (4.1-5.3); Red Cell Distribution Width 13.4 % (12.1-15.1); White Blood Count 5.6 10^3/uL (4.0-10.0)
[2022-07-30] MEDS: nicotine 14 mg Patch 1 PATCH TRANSDERMA (10:06)
[2022-07-30] MEDS: sodium chloride 0.9% 1,000 ML 75 ML IV (12:49)
--- NOTE | 2022-07-30 13:00 | P.PN_ITS ---
Subjective Subjective: Patient states feeling significantly better today. He was able to tolerate a clear liquid diet yesterday. States he is very hungry. Currently n.p.o. for cystoscopy this afternoon. He has had 2-3 bowel movements today. He remains hemodynamically stable. Refused COVID antigen. Medications: Reviewed: Yes Vitals/I&O/Wt Last Vital Signs Temp 98.3 F 07/30/22 08:00 Pulse 73 07/30/22 08:00 Resp 18 07/30/22 08:00 BP 107/63 07/30/22 08:00 Pulse Ox 98 07/30/22 08:00 O2 Del Method 07/30/22 08:00 07/29/22 07/30/22 07/30/22 22:59 06:59 14:59 Intake Total 250 / 1350 1150 / 2500 1125 / 1125 Balance 250 / 1350 1150 / 2500 1125 / 1125 Weight last 48 hrs Weight 83.779 kg Physical Exam Narrative: General: No acute distress, AO x3 Chest: Normal vesicular breath sounds, no added sounds, equal good air entry bilaterally CVS: S1-S2 regular, no murmurs, no tachycardia, no gallops, no rubs Abdomen: Soft, nontender, no organomegaly, bowel sounds present Neuro: No focal deficits, no facial deformity, AO x3, power 5/5 in all limbs Data : 07/30/22 07:14 07/30/22 07:14 Micro: Microbiology 07/30/22 02:30 C.difficile Toxin B Gene (PCR) - Final Stool Routine Collection 07/28/22 13:23 Blood Culture - Preliminary Blood NEGATIVE TO DATE 07/28/22 13:27 Blood Culture - Preliminary Blood NEGATIVE TO DATE A&P Assessment and plan (1) [place]-vesical fistula: This is a suspected diagnosis Status: Acute (2) 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 Will need follow-up with ophthalmology as outpatient, sisters prefers to complete this as outpatient. Status: Acute (3) Acute diverticulitis: Status: Acute (4) Cystitis: Status: Acute Plan 47 year old male with past medical history of iritis , legally blind , past history of recurrent diverticulitis started about 10 years back in the last 4 months has worsened significantly with recurrent hospitalization at least 3 treated with IV antibiotics, came in with chief complaint of worsening lower abdominal pain ,nausea. CT of the abdomen showed significant inflammation between the sigmoid colon and the bladder. Findings are suspicious for inflammatory phlegmon from diverticulitis versus possible colovesical fistula. No air is however seen within the tract therefore colovesical fistula is currently only a suspected diagnosis. Patient is currently receiving treatment with IV antibiotics with plan for colonoscopy 6 to 8 weeks down the line to further assess his colonic anatomy. Differentials include but are not limited to diverticulitis, underlying malignancy versus inflammatory bowel disease given his young age and also history of iritis. Today his C. difficile PCR has additionally resulted positive. Start p.o. vancomycin 125 mg 4 times daily. Patient is hungry, advance diet to soft mechanical diet after cystocopy CODE STATUS: Full code DVT prophylaxis: On Lovenox Attestations Medical Necessity Statement*: Cystoscopy today, trial of advancing diet, anticipate discharge in the upcoming 24 hours. Coding Level of Care Code Acute Environmental Services Lead for [facility] Diagnoses [place]-vesical fistula N32.1 Legally blind H54.8 Acute diverticulitis K57.92 Cystitis N30.90
--- NOTE | 2022-07-30 13:23 | PC.CHAP ---
Pastoral Care Encounter/Spiritual Assessment Type of Contact [] Declined corrugator operator helper visit [] Patient/Family/Request visit [] Outpatient visit [] Follow-up visit [] Physician referral [] Code/Alert [x] Routine visit [] Staff referral [] Actively dying [] Patient sleeping [] Family support [] [] Out of room [] Palliative care [] [] Receiving care in room [] Pre-surgical visit [] Trauma [] Long length of stay [] ICU visit [] Other: Relational/Emotional Strength [x] Patient feels connected with others/family/visitors/staff [] Distress [] Loneliness/isolation [] Abandonment Spirituality of Patient [] Person of Niki [] Attends Religion of their Niki [] Believes in Prayer [] Reads Bible or Denominational materials [x] There are Spiritual issues to be addressed Community Health Promoter Interventions [x] Prayer [] Active listening [] Non-anxious presence [x] Spiritual/emotional support [] Crisis/trauma care [] Spiritual counseling [] Bereavement support [] Provided bereavement packet [] Provided Bible/devotional materials [] Provided toy/stuffed animal, coloring book to patient or family member [] Provided Communion [] Anointing/[place] [] Salvation [x] Completed spiritual assessment [] Other: Impact on Illness or Injury [] Angry [] Fearful [] Anxious [] Often cries [] Exhaustion [] Unable to work [] Unable to attend jew [] Unable to walk/stand [] Unable to read [] Unable to drive [] Unable to eat/drink [] Unable to sleep [] Unable to be with family [] Patient intubated [] Other: Summary Time spent with patient 10 min
--- NOTE | 2022-07-30 16:16 | P.PN_ITS ---
Subjective Subjective: Patient seems to be feeling better today Medications: Reviewed: Yes Vitals/I&O/Wt Last Vital Signs Temp 98.4 F 07/30/22 12:00 Pulse 67 07/30/22 12:00 Resp 16 07/30/22 12:00 BP 115/79 07/30/22 12:00 Pulse Ox 95 07/30/22 12:00 O2 Del Method 07/30/22 12:00 07/30/22 07/30/22 07/30/22 06:59 14:59 22:59 Intake Total 1150 / 2500 1125 / 1125 Balance 1150 / 2500 1125 / 1125 Weight last 48 hrs Weight 184 lb 11.2 oz Physical Exam Narrative: Patient is conscious alert oriented X3 No apparent distress BMI 24 Head and neck examination PERRLA no masses no cervical lymphadenopathy no jaundice Abdomen nontender nondistended soft no organomegaly guarding or rigidity/no signs of peritonitis Extremities no cyanosis no clubbing no edema Data : 07/30/22 07:14 07/30/22 07:14 Micro: Microbiology 07/30/22 02:30 Enteric Pathogens (PCR) - Final Stool Routine Collection 07/30/22 02:30 C.difficile Toxin B Gene (PCR) - Final Stool Routine Collection 07/28/22 13:23 Blood Culture - Preliminary Blood NEGATIVE TO DATE 07/28/22 13:27 Blood Culture - Preliminary Blood NEGATIVE TO DATE A&P Assessment and plan (1) Diverticulitis of large intestine with complication: Plan of care has been discussed today with the patient in the presence of the nursing staff Sil and his friend, as the patient would benefit from a colonoscopy 6 to 8 weeks from this episode. To minimize the potential risk of perforation and potential planning for surgical intervention. Patient was under the impression that he would be getting the colonoscopy after 3 weeks of antibiotics. I explained for the patient today that waiting for 6 to 8 weeks is the common practice as earlier than that there is a higher risk of perforation. And I did educate the patient that upon his discharge he would receive appropriate education and a clear plan of care among different services. Thank you for consulting general surgery to participate taking care . Status: Acute Attestations Medical Necessity Statement*: Per admitting service Time Spent in Patient Care: 16 - 35 minutes Coding Level of Care Code Acute Sports Analyst for [facility] Fwd Diagnoses Diverticulitis of large intestine with complication K57.32
[2022-07-30] MEDS: benzonatate 100 mg Capsule 200 MG PO (16:38)
--- NOTE | 2022-07-30 17:33 | P.PN_ITS ---
Subjective Subjective: Urology follow-up: Overall he states he is feeling better. He had 1 bowel movement today but apparently stool came back positive for C. difficile. I had planned to do a flexible cystoscopy originally at noon today at the bedside but due to clinic responsibilities could not get appear until about 530. At that point it was clear that he did have a positive C. difficile test. I recommended postponing the cystoscopy until risk of contagion are significantly reduced. (Flexible bedside cystoscopy is roughly equivalent to passing a catheter and he does not require any dietary restrictions for that procedure) We will plan on doing it before he leaves but if he does leave prior to co mpleting the cystoscopy I will see him back in clinic very soon for flexible cystoscopy and planning for surgical intervention regarding diverticular abscess. All of this was explained in detail to the patient and his sister (over the phone). They both expressed good understanding. Labs reviewed. Medications: Reviewed: Yes Vitals/I&O/Wt Last Vital Signs Temp 98.4 F 07/30/22 12:00 Pulse 67 07/30/22 12:00 Resp 16 07/30/22 16:27 BP 115/79 07/30/22 12:00 Pulse Ox 95 07/30/22 12:00 O2 Del Method 07/30/22 12:00 07/30/22 07/30/22 07/30/22 06:59 14:59 22:59 Intake Total 1150 / 2500 1125 / 1125 Balance 1150 / 2500 1125 / 1125 Weight last 48 hrs Weight 184 lb 11.2 oz Physical Exam Const: COMMON NORMALS: no acute distress, alert and well nourished GENERAL APPEARANCE: well kempt and well developed ORIENTATION/CONSCIOUSNESS: not confused Resp: COMMON NORMALS: normal respiratory effort EFFORT & INSPECTION: Yes able to speak in complete sentences, No labored and No Actively coughing Neuro: COMMON NORMALS: no focal motor deficits SENSORIUM/ORIENTATION: Yes alert Psych: COMMON NORMALS: mental status grossly normal APPEARANCE: Yes grossly normal and Yes well kempt ATTITUDE: Yes calm and Yes engaged Data : 07/30/22 07:14 07/30/22 07:14 Micro: Microbiology 07/30/22 02:30 Enteric Pathogens (PCR) - Final Stool Routine Collection 07/30/22 02:30 C.difficile Toxin B Gene (PCR) - Final Stool Routine Collection 07/28/22 13:23 Blood Culture - Preliminary Blood NEGATIVE TO DATE 07/28/22 13:27 Blood Culture - Preliminary Blood NEGATIVE TO DATE A&P Assessment and plan (1) Bladder wall thickening: Status: Acute (2) Diverticulitis of large intestine with abscess: Status: Acute Attestations Medical Necessity Statement*: See attending Coding Level of Care Code Acute Hide Or Skin Buffer for Melvin Arrington Diagnoses Bladder wall thickening N32.89 Diverticulitis of large intestine with abscess K57.20
[2022-07-31] MEDS: sodium chloride 0.9% 1,000 ML 75 ML IV (02:31)
[2022-07-31 04:00] VITALS: BP 121/78; PULSE 63; RESP 16; TEMP 36.4; O2SAT 99
[2022-07-31 04:42] LABS: Basophils % 0.4 %; Eosinophils # 0.2 10^3/uL (0.0-0.8); Eosinophils % 3.5 %; Hemoglobin 13.6 g/dL (11.7-16.6); Lymphocytes # 2.2 10^3/uL (0.8-4.8); Lymphocytes % 42.7 %; Mean Corpuscular HGB Conc 30.9 g/dL (30.0-36.0); Mean Corpuscular Hemoglobin 31.1 pg (28.0-34.0); Mean Corpuscular Volume 100.5 fl (80-94); Monocytes # 0.7 10^3/uL (0.2-0.9); Monocytes % 14.2 %; Neutrophils # 2.02 10^3/uL (1.8-7.7); Neutrophils % 38.8 %; Nucleated Red Blood Cells % 0 %; Platelet Count 339 10^3/cmm (130-400); Positive M 1; Red Blood Count 4.38 10^6/uL (4.1-5.3); Red Cell Distribution Width 13.1 % (12.1-15.1); White Blood Count 5.2 10^3/uL (4.0-10.0)
[2022-07-31 04:59] LABS: Alanine Aminotransferase 9 U/L (0-41); Albumin Level 3.5 g/dL (3.5-5.2); Alkaline Phosphatase 75 U/L (40-130); Anion Gap 11.8 (5-19); Aspartate Amino Transferase 13 U/L (0-40); Blood Urea Nitrogen 9 mg/dL (6-20); Calcium 8.7 mg/dL (8.5-10.5); Carbon Dioxide 26 mmol/L (22-29); Chloride 108 mmol/L (98-107); Creatinine Clr Calc Pharmacy 149.5571; Globulin 3.2 g/dL (1.3-4.6); Glomerular Filtration Rate 119.9 mL/min (90-130); Glucose 91 mg/dL (65-115); Osmolality Calculated 290 mOsm/kg (285-295); Potassium 4.8 mmol/L (3.5-5.1); Sodium 141 mmol/L (136-145); Total Bilirubin 0.2 mg/dL (0.15-1.2); Total Protein 6.7 g/dL (6.6-8.7)
[2022-07-31 05:22] LABS: Slide Review Slide Review Perform
[2022-07-31] MEDS: famotidine 20 mg/2 mL INJ IVP (06:17)
[2022-07-31] MEDS: acetaminophen 1,000 MG/100 ML PIGGYBACK 400 MG IV (06:18)
[2022-07-31] MEDS: ketorolac 30 mg/mL INJ 15 MG IVP (06:18)
[2022-07-31 06:32] VITALS: RESP 17
[2022-07-31] MEDS: morphine 4 mg/mL SDV 1 mL 2 MG IVP (06:32)
[2022-07-31] MEDS: piperacillin-tazobactam 3.375 GM in sodium chloride 0.9% (plus) 50 ML IV (06:32)
[2022-07-31 07:31] VITALS: BP 109/70; PULSE 75; RESP 16; TEMP 36.4; O2SAT 97
[2022-07-31 08:00] VITALS: BP 114/72; PULSE 49; RESP 16; TEMP 36.7
[2022-07-31] MEDS: nicotine 14 mg Patch 1 PATCH TRANSDERMA (10:44)
[2022-07-31] MEDS: benzonatate 100 mg Capsule 200 MG PO (10:44)
--- NOTE | 2022-07-31 10:47 | PC.SOCIAL ---
IMM update IMM updated with patient at bedside. Copy of page 2 provided. Patient verbalized understanding. Copy in chart initialed, timed and dated.
[2022-07-31 11:32] VITALS: BP 114/72; PULSE 49; RESP 16; TEMP 36.7; O2SAT 93
--- NOTE | 2022-07-31 11:59 | P.DS_ITS ---
Discharge Providers Date of Admission: 07/28/22 17:30 Date of Discharge: July 31, 2022 Attending Provider at Admission: Chaim Montgomery MD Attending Provider at Discharge: Deb Samuels MD Consults: Dr. Segura, urology Dr. Yao, general surgery Diagnoses at Discharge Discharge Diagnosis (1) Bladder wall thickening: Status: Acute (2) Diverticulitis of large intestine with abscess: Status: Acute Reason for Visit Reason for Visit: Low BP, SOB Hospital Course Hospital Course Atif Montalvo is a 47 year old male with past medical history of iritis , legally blind , past history of recurrent diverticulitis started about 10 years back in the last 4 months has worsened significantly with recurrent hospitalizations [id number]. He has recently moved to [place] to live with his sister. He presented to the hospital on July 28, 2022 with worsening abdominal pain nausea after having failed an outpatient treatment for diverticulitis with amoxicillin. He denies any diarrhea. He also had painful urination. He underwent a CT of his abdomen and pelvis which showed marked irregular thickening of the bladder, inflammatory thickening of the adjacent sigmoid colon and a small collection of fluid and air measuring approximately 2.5 x 1.5 cm which was suspicious for a colovesical fistula. He was managed conservatively with IV fluids, IV pain control, IV antibiotics by way of piperacillin tazobactam. He is being discharged on cephalosporins and metronidazole for the diverticulitis. Incidentally his C. difficile PCR also returned positive. Unclear if C. difficile is related to his underlying s ymptoms. He denies any past diarrhea episodes. States he does not have a history of C. difficile in the past. Would have expected more of a diffuse colitis rather than a localized collection with C. difficile, however at this point it is difficult to a certain if patient truly had diverticulitis versus C. difficile colitis that led up to his multiple admissions. For his C. difficile colitis he is being discharged with p.o. vancomycin 125 mg 4 times daily for 14 days. 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 Patient prefers to follow-up in [place] for the same. At the time of discharge he has been given referrals to general surgery for colonoscopy 6 to 8 weeks down the line, referral to urology for cystoscopy. This was deferred as inpatient due to discovery of C. difficile. Also given referral to ophthalmology in [place] per her request per his request to follow-up on iritis which is per his description thought to be from a related. History feels significantly improved at the time of discharge. He is no longer in pain. Passing 2-3 bowel movements every day. Has an appetite and wishes to eat. Physical Exam Narrative: General: No acute distress, AO x3 HEENT: PERRLA, pupils bilaterally equal and reactive, pallors not present Chest: Normal vesicular breath sounds, no added sounds, equal good air entry bilaterally CVS: S1-S2 regular, no murmurs, no tachycardia, no gallops, no rubs Abdomen: Soft, nontender, no organomegaly, bowel sounds present Neuro: No focal deficits, no facial deformity, AO x3, power 5/5 in all limbs Discharge Data Studies Completed and Pending Completed Studies During Hospitalization Category Date Time Status CT angio chest w abd pel w con Stat Cat Scan 07/28/22 11:[address] head wo con* [id number] Stat Cat Scan 07/28/22 11:01 Completed XR chest 1V portable [id number] Stat Exams 07/28/22 11:01 Completed MR head wo/w con [id number] Stat MRI 07/28/22 12:42 Completed Pending at discharge Category Date Time Status Blood Culture Stat Lab 07/28/22 13:27 Results COVID [SARS Covid-2 Antigen] Routine Lab 07/29/22 17:23 Uncollected Radiology Impressions Chest X-Ray 07/28/22 11:01 IMPRESSION: No acute findings. Chest/Abdomen/Pelvis CT 07/28/22 11:01 IMPRESSION: No acute findings. IMPRESSION: Findings suspicious for colovesical fistula in the setting of sigmoid diverticulitis, with 2.7 x 1.5 cm potential developing abscess. Note that underlying malignancy of either the sigmoid or bladder is not excluded on this examination. Recommend referral to general surgery and/or urology. ADDENDUM: 07/28/22 1310 Addendum: Findings discussed with and acknowledged by XOCHITL Loredo at 07/28/2022 1:08 PM CDT with any questions answered. Head CT 07/28/22 11:01 IMPRESSION: 1. Indeterminate 4 mm circumscribed rounded hyperdense structure within the 4th ventricle to the left of midline. This may be partially calcified although this cannot be confirmed on this exam. This appears too round and circumscribed to represent hemorrhage. Consider follow-up MRI with and without contrast to better characterize. 2. Mucosal thickening bilateral ethmoid air cells and layering fluid right maxillary sinus, correlate for sinusitis. 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 Interval follow-up is recommended. Laboratory Results WBC 5.2 10^3/uL (4.0-10.0) 07/31/22 04:36 RBC 4.38 10^6/uL (4.1-5.3) 07/31/22 04:36 Hgb 13.6 g/dL (11.7-16.6) 07/31/22 04:36 Hct 44.0 % (42.0-52.0) 07/31/22 04:36 MCV 100.5 fl (80-94) H 07/31/22 04:36 MCH 31.1 pg (28.0-34.0) 07/31/22 04:36 MCHC 30.9 g/dL (30.0-36.0) 07/31/22 04:36 RDW 13.1 % (12.1-15.1) 07/31/22 04:36 Plt Count 339 10^3/cmm (130-400) 07/31/22 04:36 MPV 9.0 fL (7.4-10.4) 07/31/22 04:36 Neut % (Auto) 38.8 % 07/31/22 04:36 Lymph % (Auto) 42.7 % 07/31/22 04:36 Grand % (Auto) 14.2 % 07/31/22 04:36 Eos % (Auto) 3.5 % 07/31/22 04:36 Baso % (Auto) 0.4 % 07/31/22 04:36 Neut # (Auto) 2.02 10^3/uL (1.8-7.7) 07/31/22 04:36 Lymph # (Auto) 2.2 10^3/uL (0.8-4.8) 07/31/22 04:36 Grand # (Auto) 0.7 10^3/uL (0.2-0.9) 07/31/22 04:36 Eos # (Auto) 0.2 10^3/uL (0.0-0.8) 07/31/22 04:36 Baso # (Auto) 0.0 10^3/uL (0.0-0.1) 07/31/22 04:36 Nucleated RBC % (auto) 0 % 07/31/22 04:36 Nucleated RBCs # 0.0 /100WBC 07/31/22 04:36 PT 12.90 SECONDS (12.1-14.9) 07/29/22 04:23 INR 0.94 (0.8-1.2) 07/29/22 04:23 Sodium 141 mmol/L (136-145) 07/31/22 04:36 Potassium 4.8 mmol/L (3.5-5.1) 07/31/22 04:36 Chloride 108 mmol/L (98-107) H 07/31/22 04:36 Carbon Dioxide 26 mmol/L (22-29) 07/31/22 04:36 Anion Gap 11.8 (5-19) 07/31/22 04:36 BUN 9 mg/dL (6-20) 07/31/22 04:36 Creatinine 0.7 mg/dL (0.7-1.2) 07/31/22 04:36 GFR Calculation 119.9 mL/min (90-130) 07/31/22 04:36 Glucose 91 mg/dL (65-115) 07/31/22 04:36 Calculated Osmolality 290 mOsm/kg (285-295) 07/31/22 04:36 Calcium 8.7 mg/dL (8.5-10.5) 07/31/22 04:36 Total Bilirubin 0.2 mg/dL (0.15-1.2) 07/31/22 04:36 AST 13 U/L (0-40) 07/31/22 04:36 ALT 9 U/L (0-41) 07/31/22 04:36 Alkaline Phosphatase 75 U/L (40-130) 07/31/22 04:36 Troponin T Baseline 6 ng/L (0-15) 07/28/22 11:31 Troponin T 120 Minute 6.00 ng/L (0-15) 07/28/22 13:23 Delta Troponin T 0 ABS# (0-10) 07/28/22 13:23 Troponin T Hi Sens 6Hr 6.00 ng/L (0-15) 07/28/22 17:11 Troponin T Hi Sens 6Hr Delta 0 ng/L (0-12) 07/28/22 17:11 NT-Pro-B Natriuret Pep 49 pg/mL (0-125) 07/28/22 11:31 Total Protein 6.7 g/dL (6.6-8.7) 07/31/22 04:36 Albumin 3.5 g/dL (3.5-5.2) 07/31/22 04:36 Globulin 3.2 g/dL (1.3-4.6) 07/31/22 04:36 Lipase 21 U/L (13-60) 07/28/22 11:31 Urine Color Yellow (Yellow) 07/28/22 11:31 Urine Appearance Clear (CLEAR) 07/28/22 11:31 Urine pH 6 (5-7) 07/28/22 11:31 Ur Specific [place] 1.010 (1.005-1.030) 07/28/22 11:31 Urine Protein Neg (Negative) 07/28/22 11:31 Urine Glucose (UA) Norm (Normal) 07/28/22 11:31 Urine Ketones Negative (Negative) 07/28/22 11:31 Urine Blood Neg (Negative) 07/28/22 11:31 Urine Nitrate Negative (Negative) 07/28/22 11:31 Urine Bilirubin Neg (Negative) 07/28/22 11:31 Urine Urobilinogen Norm mg/dL (Negative) 07/28/22 11:31 Ur Leukocyte Esterase Negative (Negative) 07/28/22 11:31 Vitals Last Vital Signs Temp 98.1 F 07/31/22 11:32 Pulse 49 L 07/31/22 11:32 Resp 16 07/31/22 11:32 BP 114/72 07/31/22 11:32 Pulse Ox 93 07/31/22 11:32 O2 Del Method 07/31/22 07:31 Discharge Plan Discharge Patient Disposition: Home Condition: Stable Prescriptions: New vancomycin 125 mg capsule 125 mg PO QID 14 Days Qty: 56 0RF metronidazole 500 mg tablet 500 mg PO Q8H 10 Days Qty: 30 0RF cefuroxime axetil 500 mg tablet 500 mg PO BID 10 Days Qty: 20 0RF Discontinued amoxicillin-pot clavulanate 875-125 mg tablet 1 tab PO BID 10 Days Qty: 20 0RF ibuprofen 200 mg Capsule 1,600 mg PO TID PRN (Reason: Pain) Discharge Orders: Discharge Order (Routine); Ordered 07/31/22 Ordered By: Deb Samuels Referrals: Gato Cabrera MD [Physician] - 2 weeks (Return to surgery office in 2 weeks to discuss colonoscopy) Shahriar Segura MD [Physician] - 2 weeks neurology, [place] [Other] - 1 month Zach Adam MD [Physician] - 1 month Discharge Diet: As Directed Discharge Activity: Resume usual activity Patient Instructions: Opioid Safety Activity Restrictions/Additional Instructions: Plan of care; Review the pathology with the patient Return to primary care provider Avoid constipation Avoid seeds nuts and popcorn High Fiber diet; As Fiber softens the stool and helps prevent constipation. It also can help decrease pressure in the colon and help prevent flare-ups of diverticulitis. High-fiber foods include: ? Beans and legumes ? Bran, whole wheat bread and whole grain cereals such as oatmeal ? Brown and wild rice ? Fruits such as apples, bananas and pears ? Vegetables such as broccoli, carrots, corn and squash ? Whole wheat pasta The target is to eat 25 to 30 grams of fiber daily. Drink at least 8 cups of fluid daily. Fluid will help soften your stool.Exercise also promotes bowel movement and helps prevent constipation. Weight management Assurance and education All questions have been answered Discharge Attestations Time Spent in Discharge Care*: greater than 30 min Quality Metrics Clinical Quality Measures [ No reported AMI, CVA or VTE this stay] Coding Level of Care Code Acute Chg FW DC note Diagnoses Bladder wall thickening N32.89 Diverticulitis of large intestine with abscess K57.20
[2022-07-31 15:01] VITALS: BP 114/72; PULSE 49; RESP 16; TEMP 36.7; O2SAT 93
== END 2022-07-31 15:02 | disposition home or self-care (01) | DRG 392 ==
LOC: ER 16:36 → MEDSURG 17:44
PROVIDERS: Admitting Provider Internal Medicine; Emergency Provider Emergency Medicine; Visit Provider Student in an Organized Health Care Education/Training Program
DX: K57.20 Diverticulitis of large intestine with perforation and abscess without bleeding (principal); N32.1 Vesicointestinal fistula; A04.72 Enterocolitis due to Clostridium difficile, not specified as recurrent; H54.8 Legal blindness, as defined in USA; H20.13 Chronic iridocyclitis, bilateral; Z80.0 Family history of malignant neoplasm of digestive organs; N30.90 Cystitis, unspecified without hematuria; F17.200 Nicotine dependence, unspecified, uncomplicated
CPT/HCPCS: 12345; 36415; 70450; 70553; 71045; 71275; 74177; 80053; 81003; 83690; 83880; 84484; 85025; 85610; 87040; 87493; 87506; 93005; 96365; 96367; 96372; 96375; 99285; A9577; J0743; J1170; J1650; J1885; J2270; J2405; J2543; J3370; J3490; J7030; Q9967; S0030

== ENCOUNTER → 2022-08-20 14:25 | Outpatient (BNVA) | payer MEDICARE, MEDICAID, SELFPAY | PROVIDERS: PCP Family Medicine; Visit Provider Family Medicine | DX: K57.92 Diverticulitis of intestine, part unspecified, without perforation or abscess without bleeding (principal); M19.90 Unspecified osteoarthritis, unspecified site; Z01.818 Encounter for other preprocedural examination | CPT/HCPCS: 80053; 85025; 85651; 86038; 86140 ==

== ENCOUNTER → 2022-08-23 13:28 | Outpatient (BNVA) | payer MEDICARE, MEDICAID, SELFPAY | PROVIDERS: PCP Family Medicine; Visit Provider Emergency Medicine | DX: R10.9 Unspecified abdominal pain (principal); H44.113 Panuveitis, bilateral; K57.92 Diverticulitis of intestine, part unspecified, without perforation or abscess without bleeding; M19.90 Unspecified osteoarthritis, unspecified site; M45.9 Ankylosing spondylitis of unspecified sites in spine | CPT/HCPCS: 80053; 81000; 82164; 85025; 85549; 85651; 86140; 86592; 86611; 86617; 86812; 87086; 87806 ==

== ENCOUNTER → 2022-08-28 10:12 | Outpatient (BNVA) | payer MEDICARE, MEDICAID, SELFPAY | PROVIDERS: PCP Family Medicine; Visit Provider Family Medicine | DX: R25.2 Cramp and spasm (principal); K29.70 Gastritis, unspecified, without bleeding; K57.92 Diverticulitis of intestine, part unspecified, without perforation or abscess without bleeding; M45.9 Ankylosing spondylitis of unspecified sites in spine; N32.89 Other specified disorders of bladder; M19.90 Unspecified osteoarthritis, unspecified site; N32.1 Vesicointestinal fistula; R70.0 Elevated erythrocyte sedimentation rate; R79.82 Elevated C-reactive protein (CRP) | CPT/HCPCS: 80048; 83735; 85025; 86038; 86812 ==

== ENCOUNTER → 2022-09-11 09:05 | Outpatient (BNVA) | payer MEDICARE, MEDICAID, SELFPAY | PROVIDERS: PCP Family Medicine; Visit Provider Surgery | DX: K57.92 Diverticulitis of intestine, part unspecified, without perforation or abscess without bleeding (principal); N32.1 Vesicointestinal fistula | CPT/HCPCS: 99213 ==

== ENCOUNTER → 2022-09-13 09:16 | Outpatient (BNVA) | payer MEDICARE, MEDICAID, SELFPAY | PROVIDERS: PCP Family Medicine; Visit Provider Urology | DX: N32.89 Other specified disorders of bladder (principal); N20.1 Calculus of ureter | CPT/HCPCS: 52000; 81003; 99214 ==

== ENCOUNTER 2022-09-16 09:28 | Day surgery (SDC) | payer MEDICARE, MEDICAID, SELFPAY ==
[2022-09-13 12:52] VITALS: BMI 25.0
[2022-09-16 09:56] VITALS: BP 128/77; PULSE 81; RESP 18; TEMP 36.9; O2SAT 99
[2022-09-16] MEDS: sodium chloride 0.9% 1,000 ML 30 ML IV (10:05)
--- NOTE | 2022-09-16 11:02 | W.PM.OPSUD ---
Surgery/Procedure H&P Update DATE OF PROCEDURE: September 16, 2022 DATE H&P PERFORMED: 09/11/22 H&P UPDATE INFORMATION: I have reviewed H&P completed within last 30 days, I have examined patient prior to procedure and Changes to prior documentation as noted here (per Urolog:There was a lot of inflammatory changes in the left side of the bladder mucosa onto the anterior wall but there is no evidence of a fistula) PREOP DIAGNOSIS: History of diverticulitis and concern of colovesical fistula PRIMARY INDICATION FOR PROCEDURE: The same PLANNED PROCEDURE: The same Operation Date: 09/16/22 11:30 Proposed Procedures p Colonoscopy 45280,K57.92(Not Applicable) - Gato Cabrera MD
--- NOTE | 2022-09-16 11:42 | ANES.PREANE2 ---
Pre-Anesthetic Assessment Height/Weight: Height 1.83 m Weight 83.915 kg Temp Pulse Resp BP Pulse Ox O2 Del Method 98.4 F 81 18 128/77 99 09/16/22 09:56 09/16/22 09:56 09/16/22 09:56 09/16/22 09:56 09/16/22 09:56 09/16/22 09:56 Preop Diagnosis: History of diverticulitis and concern of colovesical fistula Operation Date: 09/16/22 11:30 Proposed Procedures p Colonoscopy 59039,K57.92(Not Applicable) - Gato Cabrera MD Familial anesthetic complications: none Was Beta Liudmila taken within 24 hours: N/A Was Clonidine taken within 24 hours: N/A Last intake: Intake Last Liquid Date 09/15/22 Last Liquid Time 22:00 Last Solid Date 09/14/22 Last Solid Time 00:00 Last Intake: 22:00 Social Alcohol (whisky daily) and Tobacco 1ppd pack(s) per day 30+ pack years Exam alert, oriented x 3, clear to auscultation bilaterally and regular rate & rhythm legally blind Airway Submandibular: within normal limits Cervical ROM: within normal limits Mallampati: Class I Dentition: chipped (poor multiple decayed missing) Pulmonary Chronic Obstructive Pulmonary Disease CV/HEM None reported None reported Hepatic None reported GI Gastroesophageal Reflux Disease Metabolic None reported Musc/skel None reported Neuropsych Anxiety and Depression Anesthetic Plan ASA status: 2 Anesthesia: MAC Risk of > 500 ml blood loss (7ml/kg in children): No Medications/Allergies Home Medications Medication Instructions Recorded Confirmed Last Taken Type pantoprazole 40 mg tablet,delayed 40 mg PO BID 30 days #60 tabs 08/28/22 09/16/22 Unknown Rx release tamsulosin 0.4 mg capsule 0.4 mg PO QDAY #30 caps 09/13/22 09/16/22 Unknown Rx Allergies Allergy/AdvReac Type Severity Reaction Status Date / Time ciprofloxacin [From Cipro] Allergy Intermediate hallucinati Verified 09/13/22 09:30 ons Current Medications Generic Name Dose Route Start Last Admin Trade Name Freq PRN Reason Stop Dose Admin Sodium Chloride 1,000 mls @ 30 mls/hr 09/16/22 09:45 09/16/22 10:05 Sodium Chloride 0.9% IV 30 mls/hr .Q24H MARCELINO Administration PFSH Anesthesia Medical History Acute abdominal pain Diverticulitis Diverticulitis of large intestine with complication History of diverticulitis of colon Poor oral hygiene Prostate cancer screening Psychiatric care Family History Father Cancer bowel, and rectal Mother Stroke Sister Thyroid disease also has karari disease Denies family history of Diabetes Clotting disorder Psychiatric illness Chronic kidney disease (CKD) Bleeding disorder Lung disease Hypertension Social History Smoking and tobacco status: current every day smoker Alcohol intake: current Alcohol intake frequency: few times a week Adopted: No Lives independently: Yes Household members: spouse Housing: House Marital status: Single Current occupational status: disabled History of recent travel: No Data Anesthesia Cardiac Studies: No Data to Display
[2022-09-16 12:15] VITALS: BP 97/67; PULSE 88; RESP 16; TEMP 36.8; O2SAT 99
--- NOTE | 2022-09-16 12:52 | ANE.PACU2 ---
Inpatient post-anesthesia follow up: Airway intact: Yes Vital signs: Temperature 98.3 F Pulse Rate 88 Respiratory Rate 16 Blood Pressure 97/67 Pulse Oximetry 99 Oxygen Delivery Me thod Room Air Oxygen Flow Rate Fraction of Inspir ed Oxygen Hydration adequate: Yes Nausea and vomiting: No Pain level: 1 Mental status: Baseline
== END 2022-09-16 12:51 | disposition home or self-care (01) ==
PROVIDERS: PCP Family Medicine; Visit Provider Surgery
PROC: 0DJD8ZZ Inspection of Lower Intestinal Tract, Via Natural or Artificial Opening Endoscopic (ICD-10-PCS; CPT 45330; principal; 2022-09-16 11:30)
DX: K57.92 Diverticulitis of intestine, part unspecified, without perforation or abscess without bleeding (principal); K56.699 Other intestinal obstruction unspecified as to partial versus complete obstruction; J44.9 Chronic obstructive pulmonary disease, unspecified; K21.9 Gastro-esophageal reflux disease without esophagitis; F41.9 Anxiety disorder, unspecified; F32.A Depression, unspecified; F17.210 Nicotine dependence, cigarettes, uncomplicated
CPT/HCPCS: 45330; J2704; J7030

== ENCOUNTER 2022-10-22 08:05 | Outpatient (CLI) | payer MEDICARE, MEDICAID, SELFPAY ==
--- NOTE | 2022-10-22 08:18 | FL_ITS ---
WS: [id number] Air contrast barium enema, 10/22/2022 Clinical Data: STRICTURE OF SIGMOID COLON Comparison: CTA chest, abdomen pelvis, 07/28/2022 Fluoroscopy time: 2min [id number] # of spot films: 4 Findings: The air and barium mixture could only be advanced to the sigmoid colon. The patient experienced sever e pain at this level and the examination was ended. FL/FL barium enema w air* [id number] Impression: The barium and air contrast material only advanced to the mid sigmoid colon and because of severe pain the examination was terminated.
== END 2022-10-22 08:06 | disposition home or self-care (01) ==
LOC: RAD 08:08
PROVIDERS: PCP Family Medicine; Visit Provider Surgery
DX: K56.699 Other intestinal obstruction unspecified as to partial versus complete obstruction (principal)
CPT/HCPCS: 74280

== ENCOUNTER 2022-11-14 14:16 | Inpatient (IN) | payer MEDICARE, MEDICAID, SELFPAY ==
[2022-11-14 14:20] VITALS: PULSE 89; RESP 16; TEMP 36.9; O2SAT 98; BMI 24.4
--- NOTE | 2022-11-14 14:28 | ECG_ITS ---
[facility] Test Date: 2022-11-14 Pat Name: Donaldo Montalvo Department: Room: Gender: Male Environmental Planner: : 1975 Requested By: Patti Cleveland Order Number: [id number] Marbella MD: Cheo Welch M.D. Measurements Intervals [place] Rate: 90 P: 86 UT: 169 QRS: 79 QRSD: 84 T: 75 QT: 392 QTc: 480 Interpretive Statements SINUS RHYTHM POSSIBLE RIGHT ATRIAL ENLARGEMENT [0.25mV P-WAVE] POSSIBLE LEFT ATRIAL ENLARGEMENT [-0.1mV P-WAVE IN V1/V2] No previous ECG available for comparison Electronically Signed On 11-14-2022 19:00:45 EMERGENCY MANAGER by Cheo Welch M.D. [id number]
--- NOTE | 2022-11-14 14:42 | W.ED.PSYCHS ---
HPI - Psych General: Chief Complaint: Psychiatric Symptoms Stated Complaint: SI Time Seen by Provider: 11/14/22 14:20 Source: patient and EMS Mode of arrival: EMS Limitations: no limitations History of Present Illness: 47-year-old male states been having active suicidal thoughts. He states that he has had increased depression and feels like life is no longer worth living. He states he feels like if he is out in public anymore he is going to kill himself and wants to get help. Associated symptoms: Reports suicidal ideation Review of Systems Const: Denies: fever(s), chills, body aches or change in appetite Eyes: Denies: blurry vision or eye discomfort ENMT: Denies: throat pain or dental pain Card: Denies: chest pain Resp: Denies: dyspnea GI: Denies: abdominal pain, nausea, vomiting or diarrhea : Denies: dysuria Musc: Denies: neck pain or back pain Skin/Breast: Denies: rash Neuro: Denies: headache(s) Psych: Reports: suicidal ideation John/Lymph: Denies: easy bruising All/Imm: Denies: urticaria PFSH ED PFSH: Medical History Acute abdominal pain Diverticulitis Diverticulitis of large intestine with complication History of diverticulitis of colon Poor oral hygiene Prostate cancer screening Psychiatric care Family History Father Cancer bowel, and rectal Mother Stroke Sister Thyroid disease also has karari disease Denies family history of Diabetes Clotting disorder Psychiatric illness Chronic kidney disease (CKD) Bleeding disorder Lung disease Hypertension Social History Smoking and tobacco status: current every day smoker Alcohol intake: current Alcohol intake frequency: few times a week Adopted: No Lives independently: Yes Household members: spouse Housing: House Marital status: Single Current occupational status: disabled History of recent travel: No Physical Exam Const: COMMON NORMALS: no acute distress, patient oriented x3 and healthy appearing HENMT: COMMON NORMALS: normocephalic and atraumatic HEAD & SCALP: normocephalic and atraumatic Eye: COMMON NORMALS: Equal, round and reactive pupils present and EOMs intact bilaterally PUPIL: Yes Equal, round and reactive pupils present Neck/C-Spine: COMMON NORMALS: full ROM and supple Chest: COMMONS NORMALS: normal inspection of the chest and normal palpation of entire chest wall Resp: COMMON NORMALS: normal respiratory effort, No retractions, No use of accessory muscles and clear to auscultation bilaterally AUSCULTATION: clear to auscultation bilaterally Cardio: COMMON NORMALS: regular rate, regular rhythm and No murmurs present (Cardio) RATE: regular rate RHYTHM: regular rhythm GI: COMMON NORMALS: Normal to inspection, nondistended, normoactive bowel sounds present, Soft to palpation, non-tender and no masses PALPATION: Yes Soft to palpation Extremity: COMMON NORMALS: normal to inspection and full ROM Neuro: COMMON NORMALS: patient oriented x3, moves all extremities and no focal motor deficits Psych: COMMON NORMALS: mental status grossly normal, Normal thought process present and cooperative THOUGHT PROCESS: Normal thought process present Skin: COMMON NORMALS: no rashes or lesions noted and no wounds GENERAL SKIN EXAM: no rashes or lesions noted Course Vital Signs: Vital signs: Vital Signs Temperature 98.4 F 11/14/22 14:20 Pulse Rate 105 H 11/14/22 17:00 Respiratory Rate 16 11/14/22 17:00 Blood Pressure 127/89 11/14/22 17:00 Pulse Oximetry 96 11/14/22 17:00 Oxygen Delivery Me thod 11/14/22 16:11 [facility] - Psych Medical Decision Making Patient presents for suicidal ideation he is placed under 96-hour hold he is medically cleared I spoke to psychiatrist Dr. Hicks and will admit here. Lab Data 11/14/22 15:00 11/14/22 15:00 Laboratory Results WBC 8.2 10^3/uL (4.0-10.0) 11/14/22 15:00 RBC 5.13 10^6/uL (4.1-5.3) 11/14/22 15:00 Hgb 16.5 g/dL (11.7-16.6) 11/14/22 15:00 Hct 49.9 % (42.0-52.0) 11/14/22 15:00 MCV 97.3 fl (80-94) H 11/14/22 15:00 MCH 32.2 pg (28.0-34.0) 11/14/22 15:00 MCHC 33.1 g/dL (30.0-36.0) 11/14/22 15:00 RDW 15.2 % (12.1-15.1) H 11/14/22 15:00 Plt Count 418 10^3/cmm (130-400) H 11/14/22 15:00 MPV 8.6 fL (7.4-10.4) 11/14/22 15:00 Neut % (Auto) 53.5 % 11/14/22 15:00 Lymph % (Auto) 36.3 % 11/14/22 15:00 Pierce % (Auto) 7.1 % 11/14/22 15:00 Eos % (Auto) 2.2 % 11/14/22 15:00 Baso % (Auto) 0.4 % 11/14/22 15:00 Neut # (Auto) 4.39 10^3/uL (1.8-7.7) 11/14/22 15:00 Lymph # (Auto) 3.0 10^3/uL (0.8-4.8) 11/14/22 15:00 Pierce # (Auto) 0.6 10^3/uL (0.2-0.9) 11/14/22 15:00 Eos # (Auto) 0.2 10^3/uL (0.0-0.8) 11/14/22 15:00 Baso # (Auto) 0.0 10^3/uL (0.0-0.1) 11/14/22 15:00 Nucleated RBC % (auto) 0 % 11/14/22 15:00 Nucleated RBCs # 0.0 /100WBC 11/14/22 15:00 Sodium 142 mmol/L (136-145) 11/14/22 15:00 Potassium 3.9 mmol/L (3.5-5.1) 11/14/22 15:00 Chloride 102 mmol/L (98-107) 11/14/22 15:00 Carbon Dioxide 25 mmol/L (22-29) 11/14/22 15:00 Anion Gap 18.9 (5-19) 11/14/22 15:00 BUN 9 mg/dL (6-20) 11/14/22 15:00 Creatinine 0.7 mg/dL (0.7-1.2) 11/14/22 15:00 GFR Calculation 119.9 mL/min (90-130) 11/14/22 15:00 Glucose 89 mg/dL (65-115) 11/14/22 15:00 Calculated Osmolality 292 mOsm/kg (285-295) 11/14/22 15:00 Calcium 8.8 mg/dL (8.5-10.5) 11/14/22 15:00 Total Bilirubin 0.2 mg/dL (0.15-1.2) 11/14/22 15:00 AST 26 U/L (0-40) 11/14/22 15:00 ALT 18 U/L (0-41) 11/14/22 15:00 Alkaline Phosphatase 109 U/L (40-130) 11/14/22 15:00 Total Protein 8.3 g/dL (6.6-8.7) 11/14/22 15:00 Albumin 4.6 g/dL (3.5-5.2) 11/14/22 15:00 Globulin 3.7 g/dL (1.3-4.6) 11/14/22 15:00 Salicylates < 0.3 mg/dL (3-10) L 11/14/22 15:00 Acetaminophen < 5.0 ug/mL (10-30) L 11/14/22 15:00 Ethyl Alcohol 174 mg/dL (0-10) H 11/14/22 15:00 SARS-CoV-2 Ag (Rapid) negative (Negative) 11/14/22 15:50 EKG Data EKG 1: I personally reviewed and interpreted this EKG as follows: EKG interpretation date: 11/14/22 EKG interpretation time: 14:46 Interpretation: nsr hr [address] or t wave abnormalities qrs 84 qtc 439 Discharge Plan Discharge Patient Disposition: Admitted As Inpatient Clinical Impression: Suicidal ideation Condition: Stable Coding Level of Care Code ED Residential Gas Heat Technician for Chg Fwd Exam Comprehensive
[2022-11-14] MEDS: LORazepam 1 mg Tablet PO (15:10)
[2022-11-14 15:24] LABS: Basophils % 0.4 %; Eosinophils # 0.2 10^3/uL (0.0-0.8); Eosinophils % 2.2 %; Hematocrit 49.9 % (42.0-52.0); Hemoglobin 16.5 g/dL (11.7-16.6); Lymphocytes % 36.3 %; Mean Corpuscular HGB Conc 33.1 g/dL (30.0-36.0); Mean Corpuscular Hemoglobin 32.2 pg (28.0-34.0); Mean Corpuscular Volume 97.3 fl (80-94); Mean Platelet Volume 8.6 fL (7.4-10.4); Monocytes # 0.6 10^3/uL (0.2-0.9); Monocytes % 7.1 %; Neutrophils # 4.39 10^3/uL (1.8-7.7); Neutrophils % 53.5 %; Nucleated Red Blood Cells % 0 %; Platelet Count 418 10^3/cmm (130-400); Red Blood Count 5.13 10^6/uL (4.1-5.3); Red Cell Distribution Width 15.2 % (12.1-15.1); White Blood Count 8.2 10^3/uL (4.0-10.0)
[2022-11-14 15:38] LABS: Alanine Aminotransferase 18 U/L (0-41); Albumin Level 4.6 g/dL (3.5-5.2); Alcohol Level 174 mg/dL (0-10); Alkaline Phosphatase 109 U/L (40-130); Anion Gap 18.9 (5-19); Aspartate Amino Transferase 26 U/L (0-40); Blood Urea Nitrogen 9 mg/dL (6-20); Calcium 8.8 mg/dL (8.5-10.5); Carbon Dioxide 25 mmol/L (22-29); Chloride 102 mmol/L (98-107); Globulin 3.7 g/dL (1.3-4.6); Glomerular Filtration Rate 119.9 mL/min (90-130); Glucose 89 mg/dL (65-115); Osmolality Calculated 292 mOsm/kg (285-295); Potassium 3.9 mmol/L (3.5-5.1); Sodium 142 mmol/L (136-145); Total Bilirubin 0.2 mg/dL (0.15-1.2); Total Protein 8.3 g/dL (6.6-8.7)
[2022-11-14 15:44] LABS: Acetaminophen < 5.0 ug/mL (10-30); Salicylate < 0.3 mg/dL (3-10)
--- NOTE | 2022-11-14 15:52 | PC.NURSE ---
PT STATES HE STARTED HAVING HIS EPISODE ON LEILANI. PT STATES HE HAS BEEN HAVING SUICIDAL THOUGHTS AND HE ALSO HAD HOMICIDAL IDEATION OVER A BIKER GROUP BUT PT STATES IT HAS BEEN RESOLVED. PT STATES HE IS VERY ANXIOUS WITH A POUNDING HEADACHE AND IS HAVING RACING THOUGHTS CONSTANTLY AND IS HAVING ISSUES SLEEPING OVER IT. PT STATES HE CANNOT REMEMBER THE LAST TIME HE SLEPT. PT STATES HE IS VERY ANXIOUS
[2022-11-14 16:11] VITALS: BP 122/83; PULSE 91; O2SAT 97
[2022-11-14 16:11] LABS: SARS Covid-2 Antigen negative (Negative)
[2022-11-14 17:00] VITALS: BP 127/89; PULSE 105; RESP 16; O2SAT 96
[2022-11-14] MEDS: ondansetron 4 MG Tablet PO ×2 (19:10→21:21)
[2022-11-14 20:57] VITALS: BP 134/90; PULSE 72; RESP 18; TEMP 36.9; O2SAT 97
[2022-11-14] MEDS: trazodone 50 mg Tablet PO (21:20)
[2022-11-14] MEDS: hyDROXYzine 25 mg Capsule 50 MG PO (21:21)
[2022-11-14] MEDS: acetaminophen 325 mg Tablet 650 MG PO (21:21)
[2022-11-14] MEDS: nicotine 2 mg Gum BUCCAL (21:24)
[2022-11-14 22:00] VITALS: BP 134/90; PULSE 72; RESP 18; TEMP 36.9
[2022-11-15 06:00] VITALS: RESP 18
[2022-11-15] MEDS: folic acid 1 mg Tablet PO (08:44)
[2022-11-15] MEDS: multivitamin therapeutic Tablet 1 TAB PO (08:44)
[2022-11-15] MEDS: thiamine 100 mg Tablet PO (08:44)
[2022-11-15] MEDS: nicotine 21 mg Patch 1 PATCH TRANSDERMA (08:46)
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
[2022-11-15] MEDS: ondansetron 4 MG Tablet PO (13:10)
--- NOTE | 2022-11-15 13:10 | PC.NURSE ---
PRN ZOFRAN 4 MG GIVEN PO PER PT C/O NAUSEA
[2022-11-15 14:00] VITALS: BP 132/83; PULSE 76; RESP 17; TEMP 36.9; O2SAT 97
[2022-11-15] MEDS: hyDROXYzine 25 mg Capsule 50 MG PO (14:06)
--- NOTE | 2022-11-15 14:08 | PC.NURSE ---
PRN VISTARIL 50 MG GIVEN PO PER PT C/O STATED ANXIETY. WITHDRAWN BUT COOPERATIVE WITH CARE, PT STATES I'M JUST USED TO BEING ALONE, ALL THESE OTHER PEOPLE STRESS ME OUT
[2022-11-15] MEDS: OLANZapine 5 mg ODT PO (14:38)
--- NOTE | 2022-11-15 14:39 | PC.NURSE ---
PRN ZYPREXA ZYDIS 5 MG GIVEN PO SUBLINGUAL PER PT C/O FURTHER ANXIETY/AGITATION. ISOLATES TO ROOM, REFUSED TO GO TO AFTERNOON GROUP.
[2022-11-15] MEDS: fluoxetine 20 mg Capsule PO (17:47)
[2022-11-15 20:00] VITALS: BP 112/91; PULSE 107; RESP 18; TEMP 36.6; O2SAT 100
[2022-11-15] MEDS: trazodone 50 mg Tablet PO (21:46)
[2022-11-16 06:00] VITALS: BP 131/91; PULSE 88; RESP 17; TEMP 36.5; O2SAT 99
[2022-11-16 07:47] LABS: Amphetamines Screen Urine Negative (Negative); Barbiturates Screen Urine Negative (Negative); Benzodiazepines Screen Urine Positive (Negative); Cocaine Screen Urine Negative (Negative); Opiate Screen Urine Negative (Negative); PCP Screen Urine Negative (Negative); THC Screen Urine Positive (Negative)
[2022-11-16] MEDS: thiamine 100 mg Tablet PO (08:32)
[2022-11-16] MEDS: multivitamin therapeutic Tablet 1 TAB PO (08:32)
[2022-11-16] MEDS: folic acid 1 mg Tablet PO (08:32)
[2022-11-16] MEDS: ondansetron 4 MG Tablet PO (08:32)
[2022-11-16] MEDS: docusate sodium 100 mg Capsule PO ×2 (08:32→18:09)
[2022-11-16] MEDS: fluoxetine 20 mg Capsule PO (08:32)
[2022-11-16] MEDS: nicotine 21 mg Patch 1 PATCH TRANSDERMA (08:34)
[2022-11-16] MEDS: BuSPIRONE 10 mg Tablet 15 MG PO ×2 (09:26→18:05)
[2022-11-16] MEDS: magnesium hydroxide 30 mL UDC PO (10:56)
--- NOTE | 2022-11-16 13:18 | PC.NURSE ---
Patient requested a soft diet due to his stomach continuously hurting throughout today. He has been administered MOM, zofran, and docusate. This RN put in an order for a soft diet until the patient is able to have a bowel movement.
[2022-11-16 14:00] VITALS: BP 145/74; PULSE 88; RESP 16; TEMP 36.9; O2SAT 98
[2022-11-16] MEDS: ibuprofen 800 mg tablet PO (14:31)
[2022-11-16] MEDS: hyDROXYzine 25 mg Capsule 50 MG PO ×2 (14:31→23:08)
[2022-11-16] MEDS: nicotine 4 mg lozenge MUCOUS MEM ×2 (17:01→20:45)
--- NOTE | 2022-11-16 18:24 | W.PM.NPUPNS ---
Subjective NPU Subjective: Patient presented today reporting that he is doing alright. He reports that he did have a moment earlier for which he apologizes when he was being very upset feeling like his diverticulitis was flaring and he was not getting a reasonable response from staff. He talked about missing his service animal when she reports really helps him cope. He reports he is doing fine with the medication changes and denies any major side effects from the Prozac and BuSpar. He did report a little dizziness in the morning but he is not sure if that has to do with the medication. Mental Status Exam MSE Comments: This is a well-nourished well-developed white male in hospital scrubs with limited grooming and eye contact. No abnormal movements except for mild psychomotor agitation. Mostly cooperative with exam and mild to moderate distress. Speech was normal rate and volume. Mood described as better, affect congruent. Thought process organized. Thought content: Patient denied current suicidal or homicidal ideation, there were no delusions reported or noted, he denied any auditory or visual hallucinations. Attention and concentration appeared intact and memory was mostly reliable but none were formally tested. He is alert and oriented x3. Insight, judgment and impulse control are limited to impaired. Vitals/I&O/Wt Last Vital Signs Temp 97.8 F 11/16/22 20:35 Pulse 85 11/16/22 20:35 Resp 16 11/16/22 20:35 BP 136/95 11/16/22 20:35 Pulse Ox 100 11/16/22 20:35 O2 Del Method 11/16/22 14:00 Weight last 48 hrs Weight 80.014 kg Data NPU 11/14/22 15:00 11/14/22 15:00 A&P Assessment and plan (1) Suicidal ideation: (2) Major depressive disorder: (3) PTSD (post-traumatic stress disorder): (4) Alcohol use disorder: (5) Cannabis use disorder: Plan This is a 47-year-old white male with a long history of mental health and addiction issues with genetic loading for addiction who presents with active depression, anxiety, alcohol, and cannabis issues off of medication but open to getting restarted on medication and being connected with services. 1. Continue current medications. Initiated Prozac 20 mg poq daily and Buspar 15 mg poq bid. 2. Encourage individual, group and milieu therapy 3. Continue q-15 minute check for safety 4. Recommend sober living treatment at the highest level of care to which the patient is willing to commit. Involuntary Hold Information 96 Hour Hold: 96 Hour Involuntary Admission: Yes 96 Hour Hold Ending Date: 11/20/22 96 Hour Hold Ending Time: 18:02 Attestations NPU Medical Necessity Statement*: Inpatient hospitalization is medically necessary and the clinically appropriate intervention at this time. We will monitor medications and make changes as indicated. Likely length of stay is 2-4 days. Coding Level of Care Code Acute P 3 Armament/Ordnance Ima Technician for g Fwd Diagnoses Suicidal ideation R45.851 Major depressive disorder F32.9 PTSD (post-traumatic stress disorder) F43.10 Alcohol use disorder F19.90 Cannabis use disorder F12.90
[2022-11-16] MEDS: trazodone 50 mg Tablet PO ×2 (20:12→21:22)
[2022-11-16 20:35] VITALS: BP 136/95; PULSE 85; RESP 16; TEMP 36.6; O2SAT 100
[2022-11-17] MEDS: thiamine 100 mg Tablet PO (08:06)
[2022-11-17] MEDS: fluoxetine 20 mg Capsule PO (08:06)
[2022-11-17] MEDS: folic acid 1 mg Tablet PO (08:06)
[2022-11-17] MEDS: multivitamin therapeutic Tablet 1 TAB PO (08:06)
[2022-11-17] MEDS: BuSPIRONE 10 mg Tablet 15 MG PO ×2 (08:06→19:22)
--- NOTE | 2022-11-17 09:28 | P.NPUPN_ITS ---
Subjective NPU Subjective: Patient presented today reporting that he feels the changes that he made during the hospitalization have been positive and effective. He reports that his sister is his support system and she will be able to help him with the concerns he has that remain. We discussed in working with the treatment team tomorrow to navigate any obstacles surrounding discharge. He Expressed the Concern That He Was Going to Be in the hospital against his will for some longer timeframe. Mental Status Exam MSE Comments: This is a well-nourished well-developed white male in hospital scrubs with limited grooming and eye contact. No abnormal movements except for mild psychomotor agitation. Mostly cooperative with exam and mild distress. Speech was normal rate and volume. Mood described as better, affect congruent. Thought process organized. Thought content: Patient denied current suicidal or homicidal ideation, there were no delusions reported or noted, he denied any auditory or visual hallucinations. Attention and concentration appeared intact and memory was mostly reliable but none were formally tested. He is alert and oriented x3. Insight, judgment and impulse control are limited. Vitals/I&O/Wt Last Vital Signs Temp 97.8 F 11/16/22 20:35 Pulse 85 11/16/22 20:35 Resp 16 11/16/22 20:35 BP 136/95 11/16/22 20:35 Pulse Ox 100 11/16/22 20:35 O2 Del Method 11/16/22 14:00 Weight last 48 hrs Weight 80.014 kg Data NPU 11/14/22 15:00 11/14/22 15:00 A&P Assessment and plan (1) Suicidal ideation: (2) Major depressive disorder: (3) PTSD (post-traumatic stress disorder): (4) Alcohol use disorder: (5) Cannabis use disorder: Plan This is a 47-year-old white male with a long history of mental health and addiction issues with genetic loading for addiction who presents with active depression, anxiety, alcohol, and cannabis issues off of medication but open to getting restarted on medication and being connected with services. 1. Continue current medications. Initiated Prozac 20 mg poq daily and Buspar 15 mg poq bid. 2. Encourage individual, group and milieu therapy 3. Continue q-15 minute check for safety 4. Recommend sober living treatment at the highest level of care to which the patient is willing to commit. Involuntary Hold Information 96 Hour Hold: 96 Hour Involuntary Admission: Yes 96 Hour Hold Ending Date: 11/20/22 96 Hour Hold Ending Time: 18:02 Attestations NPU Medical Necessity Statement*: Inpatient hospitalization is medically necessary and the clinically appropriate intervention at this time. We will monitor medications and make changes as indicated. Likely length of stay is 1-3 days. Coding Level of Care Code Acute Automotive Repair Technician for [facility] Fwd Diagnoses Suicidal ideation R45.851 Major depressive disorder F32.9 PTSD (post-traumatic stress disorder) F43.10 Alcohol use disorder F19.90 Cannabis use disorder F12.90
[2022-11-17] MEDS: nicotine 21 mg Patch 1 PATCH TRANSDERMA (10:22)
[2022-11-17] MEDS: ibuprofen 800 mg tablet PO ×2 (10:25→19:00)
[2022-11-17] MEDS: docusate sodium 100 mg Capsule PO (10:27)
--- NOTE | 2022-11-17 10:27 | PC.NURSE ---
PRN COLACE 100 MG GIVEN PO PER PT C/O CONSTIPATION
[2022-11-17 14:00] VITALS: BP 172/98; PULSE 87; RESP 18; TEMP 36.9; O2SAT 96
[2022-11-17] MEDS: doxepin 10 mg Capsule PO (19:23)
[2022-11-17 19:26] VITALS: BP 136/83; PULSE 77; RESP 16; TEMP 36.4; O2SAT 97
[2022-11-17] MEDS: zolpidem 5 mg Tablet PO (20:23)
[2022-11-18] MEDS: ondansetron 4 MG Tablet PO (03:09)
--- NOTE | 2022-11-18 03:10 | PC.NURSE ---
pt came to the nurses desk with complaint of nausea. zofran 4mg po given.
--- NOTE | 2022-11-18 03:32 | PC.NURSE ---
pt up to desk stated he wanted to make staff aware that he vomited, and now he feels better.
[2022-11-18] MEDS: nicotine 4 mg lozenge MUCOUS MEM (04:02)
[2022-11-18] MEDS: ibuprofen 800 mg tablet PO ×2 (04:34→12:27)
[2022-11-18 06:00] VITALS: BP 114/81; PULSE 70; RESP 18; TEMP 36.6; O2SAT 97
--- NOTE | 2022-11-18 07:34 | PC.NURSE ---
shift assessment denies SI/HI/AVH .... staff inquired about bowel movement, pt said no I still haven't been able to go much nurse offered PRN med to help with constipation, pt states no I am defiantly going home today I will take care of it then
[2022-11-18] MEDS: thiamine 100 mg Tablet PO (08:25)
[2022-11-18] MEDS: multivitamin therapeutic Tablet 1 TAB PO (08:25)
[2022-11-18] MEDS: BuSPIRONE 10 mg Tablet 15 MG PO (08:25)
[2022-11-18] MEDS: folic acid 1 mg Tablet PO (08:25)
[2022-11-18] MEDS: fluoxetine 20 mg Capsule PO (08:25)
--- NOTE | 2022-11-18 11:02 | DCPLANNER ---
IMM completed on 11/18/22 @ 5507. Pt is vision impaired and CM reviewed rights with pt and pt was given a copy of rights.
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
[2022-11-18 11:14] VITALS: BP 114/81; PULSE 70; RESP 18; TEMP 36.6; O2SAT 97
[2022-11-18 11:15] VITALS: BP 114/81; PULSE 70; RESP 18; TEMP 36.6; O2SAT 97
== END 2022-11-18 12:58 | disposition home or self-care (01) | DRG 881 ==
LOC: ER 18:04 → NP 20:10
PROVIDERS: Admitting Provider Psychiatry & Neurology Psychiatry; Emergency Provider Emergency Medicine; PCP Family Medicine; Visit Provider Psychiatry & Neurology Psychiatry
DX: F32.9 Major depressive disorder, single episode, unspecified (principal); R45.851 Suicidal ideations; F43.10 Post-traumatic stress disorder, unspecified; F41.9 Anxiety disorder, unspecified; F10.10 Alcohol abuse, uncomplicated; Y90.6 Blood alcohol level of 120-199 mg/100 ml; F12.10 Cannabis abuse, uncomplicated; F17.200 Nicotine dependence, unspecified, uncomplicated; H54.8 Legal blindness, as defined in USA; Z62.810 Personal history of physical and sexual abuse in childhood; Z81.4 Family history of other substance abuse and dependence; Z63.0 Problems in relationship with spouse or partner; Z81.8 Family history of other mental and behavioral disorders
CPT/HCPCS: 36415; 80053; 80306; 80307; 85025; 87426; 93005; 97165; 99285; Q0162

== ENCOUNTER → 2022-11-21 11:57 | Outpatient (BNVA) | payer MEDICARE, SELFPAY | PROVIDERS: PCP Family Medicine; Visit Provider Emergency Medicine | DX: R10.9 Unspecified abdominal pain (principal); K57.20 Diverticulitis of large intestine with perforation and abscess without bleeding | CPT/HCPCS: 81000 ==

== ENCOUNTER 2022-11-23 20:06 | Emergency (ER) | payer MEDICARE, MEDICAID, SELFPAY ==
[2022-11-23 20:08] VITALS: BP 132/85; PULSE 86; RESP 18; TEMP 37; O2SAT 100; BMI 24.4
--- NOTE | 2022-11-23 20:09 | CTR_ITS ---
PROCEDURE INFORMATION: Exam: CT Abdomen And Pelvis With Contrast Exam date and time: 11/23/2022 8:34 PM Age: 47 years old Clinical indication: Abdominal pain; Generalized; Additional info: Abd pain TECHNIQUE: Imaging protocol: Computed tomography of the abdomen and pelvis with contrast. Radiation optimization: All CT scans at this facility use at least one of these dose optimization techniques: automated exposure control; mA and/or kV adjustment per patient size (includes targeted exams where dose is matched to clinical indication); or iterative reconstruction. Contrast material: OMNI 350; Contrast volume: 100 ml; Contrast route: INTRAVENOUS (IV); COMPARISON: CR FL barium enema w air* [id number] 10/22/2022 8:54 AM RADIATION DOSE METRICS: Total DLP (mGy-cm): 531.91 FINDINGS: Lungs: Minimal bibasilar atelectasis or infiltrates. Liver: Normal. No mass. Gallbladder and bile ducts: Normal. No calcified stones. No ductal dilation. Pancreas: Normal. No ductal dilation. Spleen: Normal. No splenomegaly. Adrenal glands: Normal. No mass. Kidneys and ureters: Normal. No hydronephrosis. Stomach and bowel: Segmental wall thickening present in the sigmoid colon, , extending to the rectum spanning approximately 20 cm. The collection superior to the bladder is intimately associated with the adjacent small bowel, and there may be fistulization present. The adjacent loops of small bowel are thickened. No evidence of bowel obstruction. Appendix: No evidence of appendicitis. Intraperitoneal space: See Urinary bladder finding. Vasculature: Unremarkable. No abdominal aortic aneurysm. Lymph nodes: Subcentimeter retroperitoneal lymph nodes are present. In the left pelvic sidewall there is a 1.4 cm short axis node on series 3, image 65. Urinary bladder: Marked eccentric thickening of the left and superior aspect of the bladder wall measuring 3.8 cm. Just superior to the bladder there is an air containing thick-walled collection of fluid measuring 3.2 x 2.3 cm. There is adjacent stranding in the mesentery. Reproductive: Unremarkable as visualized. Bones/joints: Unremarkable. No acute fracture. Soft tissues: Unremarkable. CT/CT abdomen pelvis w con* [id number] IMPRESSION: 1. Segmental wall thickening in the rectosigmoid colon spanning approximately 20 cm in length. Marked eccentric thickening left superior bladder with adjacent 3.2 cm abscess. This constellation of findings is suspicious for either acute diverticulitis with associated abscess or possibly a colorectal malignancy. Bladder wall thickening raises the possibility of colovesicular fistula. Fistulization to the small bowel may also be present. No free intraperitoneal air. 2. Minimal bibasilar atelectasis or infiltrates. Correlate for pulmonary infection.
--- NOTE | 2022-11-23 20:19 | ED_ITS ---
HPI - Abdominal Pain General: Chief Complaint: Abdominal Pain Stated Complaint: abd pain Time Seen by Provider: 11/23/22 20:08 Source: patient and EMS Mode of arrival: EMS Limitations: no limitations History of Present Illness: 47-year-old male states that he has had diverticulitis in the past he states he has been having increasing abdominal pain over the last 2 days that sharp in nature he rates his pain a 8 out of 10 denies any fever denies any diarrhea he denies any worsening proving factors. Associated Symptoms: Denies chills, dysuria and fever(s) Review of Systems Const: Denies: fever(s), chills, body aches or change in appetite Eyes: Denies: blurry vision or eye discomfort ENMT: Denies: throat pain or dental pain Card: Denies: chest pain Resp: Denies: dyspnea GI: Reports: abdominal pain : Denies: dysuria Musc: Denies: neck pain or back pain Skin/Breast: Denies: rash Neuro: Denies: headache(s) Psych: Denies: depression John/Lymph: Denies: easy bruising All/Imm: Denies: urticaria PFSH ED PFSH: Medical History Acute abdominal pain Diverticulitis Diverticulitis of large intestine with complication History of diverticulitis of colon Poor oral hygiene Prostate cancer screening Psychiatric care Family History Father Cancer bowel, and rectal Mother Stroke Sister Thyroid disease also has karari disease Denies family history of Diabetes Clotting disorder Psychiatric illness Chronic kidney disease (CKD) Bleeding disorder Lung disease Hypertension Social History Smoking and tobacco status: current every day smoker Alcohol intake: current Alcohol intake frequency: few times a week Adopted: No Lives independently: Yes Household members: spouse Housing: House Marital status: Single Current occupational status: disabled History of recent travel: No Physical Exam Const: COMMON NORMALS: no acute distress, patient oriented x3 and healthy appearing HENMT: COMMON NORMALS: normocephalic and atraumatic HEAD & SCALP: normocephalic and atraumatic Eye: COMMON NORMALS: Equal, round and reactive pupils present and EOMs intact bilaterally PUPIL: Yes Equal, round and reactive pupils present Neck/C-Spine: COMMON NORMALS: full ROM and supple Chest: COMMONS NORMALS: normal inspection of the chest and normal palpation of entire chest wall Resp: COMMON NORMALS: normal respiratory effort, No retractions, No use of accessory muscles and clear to auscultation bilaterally AUSCULTATION: clear to auscultation bilaterally Cardio: COMMON NORMALS: regular rate, regular rhythm and No murmurs present (Cardio) RATE: regular rate RHYTHM: regular rhythm GI: COMMON NORMALS: Normal to inspection, nondistended, normoactive bowel sounds present, Soft to palpation and no masses PALPATION: Yes Soft to palpation and Yes Tenderness to palpation present (GI) Details: LLQ Extremity: COMMON NORMALS: normal to inspection and full ROM Neuro: COMMON NORMALS: patient oriented x3, moves all extremities and no focal motor deficits Psych: COMMON NORMALS: mental status grossly normal, Normal thought process present and cooperative THOUGHT PROCESS: Normal thought process present Skin: COMMON NORMALS: no rashes or lesions noted and no wounds GENERAL SKIN EXAM: no rashes or lesions noted Course Vital Signs: Vital signs: Vital Signs Temperature 98.6 F 11/23/22 20:08 Pulse Rate 86 11/23/22 20:08 Respiratory Rate 20 H 11/23/22 20:51 Blood Pressure 132/85 11/23/22 20:08 Pulse Oximetry 100 11/23/22 20:08 MDM - Abdominal Pain Medical Decision Making Presents with abdominal pain CT shows a diverticulitis with a mass versus a tumor I spoke to the surgeon along with hospitalist will admit at this time on IV antibiotics patient has been stable while here. Lab Data 11/23/22 21:28 11/23/22 21:28 Labs/Radiology: Radiology Impressions Abdomen/Pelvis CT 11/23/22 20:09 IMPRESSION: 1. Segmental wall thickening in the rectosigmoid colon spanning approximately 20 cm in length. Marked eccentric thickening left superior bladder with adjacent 3.2 cm abscess. This constellation of findings is suspicious for either acute diverticulitis with associated abscess or possibly a colorectal malignancy. Bladder wall thickening raises the possibility of colovesicular fistula. Fistulization to the small bowel may also be present. No free intraperitoneal air. 2. Minimal bibasilar atelectasis or infiltrates. Correlate for pulmonary infection. ADDENDUM: 11/23/222140 THIS REPORT CONTAINS FINDINGS THAT MAY BE CRITICAL TO PATIENT CARE. The findings were verbally communicated via telephone conference with XOCHITL MARTINEZ at 9:37 PM [employer]IRT[employer] MA[employer]GER on 11/23/2022. The findings were acknowledged and understood. GI consultation with colonoscopy follow-up is recommended to exclude malignancy. The lymph nodes in the pelvis are nonspecific and may be reactive or malignant. Laboratory Results WBC 13.2 10^3/uL (4.0-10.0) H 11/23/22: RBC 4.68 10^6/uL (4.1-5.3) 11/23/22: Hgb 15.0 g/dL (11.7-16.6) 11/23/22: Hct 45.6 % (42.0-52.0) 11/23/22: MCV 97.4 fl (80-94) H 11/23/22: MCH 32.1 pg (28.0-34.0) 11/23/22: MCHC 32.9 g/dL (30.0-36.0) 11/23/22: RDW 14.2 % (12.1-15.1) 11/23/22: Plt Count 396 10^3/cmm (130-400) 11/23/22: MPV 8.9 fL (7.4-10.4) 11/23/22: Neut % (Auto) 78.0 % 11/23/22: Lymph % (Auto) 11.9 % 11/23/22: [facility] [place] % (Auto) 9.0 % 11/23/22: Eos % (Auto) 0.5 % 11/23/22: Baso % (Auto) 0.2 % 11/23/22: Neut # (Auto) 10.29 10^3/uL (1.8-7.7) H 11/23/22: Lymph # (Auto) 1.6 10^3/uL (0.8-4.8) 11/23/22: [facility] # (Auto) 1.2 10^3/uL (0.2-0.9) H 01/14/23 21:28 Eos # (Auto) 0.1 10^3/uL (0.0-0.8) 11/23/22 21:28 Baso # (Auto) 0.0 10^3/uL (0.0-0.1) 11/23/22 21:28 Nucleated RBC % (auto) 0 % 11/23/22 21:28 Nucleated RBCs # 0.0 /100WBC 11/23/22 21:28 Potassium 3.7 mmol/L (3.5-5.1) 11/23/22 21:28 Chloride 99 mmol/L (98-107) 11/23/22 21:28 Carbon Dioxide 23 mmol/L (22-29) 11/23/22 21:28 Anion Gap 15.7 (5-19) 11/23/22 21:28 BUN 6 mg/dL (6-20) 11/23/22 21:28 Glucose 107 mg/dL (65-115) 11/23/22 21:28 Calcium 9.5 mg/dL (8.5-10.5) 11/23/22 21:28 Total Bilirubin 0.5 mg/dL (0.15-1.2) 11/23/22 21:28 AST 17 U/L (0-40) 11/23/22 21:28 ALT 15 U/L (0-41) 11/23/22 21:28 Alkaline Phosphatase 86 U/L (40-130) 11/23/22 21:28 Total Protein 7.4 g/dL (6.6-8.7) 11/23/22 21:28 Albumin 4.0 g/dL (3.5-5.2) 11/23/22 21:28 Globulin 3.4 g/dL (1.3-4.6) 11/23/22 21:28 Lipase 16 U/L (13-60) 11/23/22 21:28 Discharge Plan Discharge Patient Disposition: Admitted As Inpatient Clinical Impression: Diverticulitis Condition: Stable Coding Level of Care Code ED [place] [employer] for [employer] Fwd Exam Comprehensive
[2022-11-23] MEDS: iohexol 350 mg/mL 500 mL Btl (per mL) IV (20:38)
[2022-11-23 20:51] VITALS: RESP 20
[2022-11-23] MEDS: morphine 4 mg/mL SDV 1 mL IVP (20:51)
[2022-11-23] MEDS: ondansetron 2 mg/ML SDV 2 mL 4 MG IVP (20:51)
[2022-11-23 21:35] LABS: Basophils % 0.2 %; Eosinophils # 0.1 10^3/uL (0.0-0.8); Eosinophils % 0.5 %; Hematocrit 45.6 % (42.0-52.0); Lymphocytes # 1.6 10^3/uL (0.8-4.8); Lymphocytes % 11.9 %; Mean Corpuscular HGB Conc 32.9 g/dL (30.0-36.0); Mean Corpuscular Hemoglobin 32.1 pg (28.0-34.0); Mean Corpuscular Volume 97.4 fl (80-94); Mean Platelet Volume 8.9 fL (7.4-10.4); Monocytes # 1.2 10^3/uL (0.2-0.9); Neutrophils # 10.29 10^3/uL (1.8-7.7); Nucleated Red Blood Cells % 0 %; Platelet Count 396 10^3/cmm (130-400); Red Blood Count 4.68 10^6/uL (4.1-5.3); Red Cell Distribution Width 14.2 % (12.1-15.1); White Blood Count 13.2 10^3/uL (4.0-10.0)
[2022-11-23] MEDS: cefTRIAXone 1,000 MG in sodium chloride 0.9% (plus) 50 ML 100 MG IV (21:42)
[2022-11-23 21:56] LABS: Alanine Aminotransferase 15 U/L (0-41); Alkaline Phosphatase 86 U/L (40-130); Anion Gap 15.7 (5-19); Aspartate Amino Transferase 17 U/L (0-40); Blood Urea Nitrogen 6 mg/dL (6-20); Calcium 9.5 mg/dL (8.5-10.5); Carbon Dioxide 23 mmol/L (22-29); Chloride 99 mmol/L (98-107); Globulin 3.4 g/dL (1.3-4.6); Glomerular Filtration Rate 143.2 mL/min (90-130); Glucose 107 mg/dL (65-115); Lipase 16 U/L (13-60); Osmolality Calculated 276 mOsm/kg (285-295); Potassium 3.7 mmol/L (3.5-5.1); Sodium 134 mmol/L (136-145); Total Bilirubin 0.5 mg/dL (0.15-1.2); Total Protein 7.4 g/dL (6.6-8.7)
[2022-11-23] MEDS: metroNIDAZOLE IV 500 MG/100 ML PREMIX 100 MG IV (22:05)
[2022-11-23 22:09] LABS: Add Urine Microscopic? NO; Charge for UA Resulting for Rev
[2022-11-23 22:15] LABS: Urine Appearance Clear (CLEAR); Urine Color Yellow (Yellow)
[2022-11-23 22:16] VITALS: BP 104/72; PULSE 82; RESP 20; O2SAT 94
[2022-11-23 22:16] LABS: Bilirubin Urine Neg (Negative); Blood Urine Neg (Negative); Glucose Urine UA Norm (Normal); Ketones Urine 1+ (Negative); Leukocyte Esterase Urine Negative (Negative); Nitrate Urine Negative (Negative); Protein Urine Neg (Negative); Specific Gravity, Urine 1.005 (1.005-1.030); Urobilinogen Urine Norm (Negative); pH Urine 6.5 (5-7)
[2022-11-23 22:30] VITALS: RESP 18; O2SAT 92
--- NOTE | 2022-11-24 00:39 | PC.NURSE ---
EMS to room to transfer pt.
== END 2022-11-24 00:45 | disposition admitted as inpatient to this hospital (09) ==
PROVIDERS: Family Medicine; Emergency Provider Emergency Medicine; PCP Family Medicine
DX: K57.92 Diverticulitis of intestine, part unspecified, without perforation or abscess without bleeding (principal); F17.210 Nicotine dependence, cigarettes, uncomplicated
CPT/HCPCS: 74177; 80053; 81003; 83690; 85025; 96365; 96366; 96375; 99285; J0696; J2270; J2405; J3490; Q9967

== ENCOUNTER → 2023-05-25 15:05 | Outpatient (BNVA) | payer MEDICARE, MEDICAID, SELFPAY | PROVIDERS: PCP Family Medicine; Visit Provider Emergency Medicine | DX: R19.8 Other specified symptoms and signs involving the digestive system and abdomen (principal); R10.9 Unspecified abdominal pain; R19.7 Diarrhea, unspecified; T81.9XXA Unspecified complication of procedure, initial encounter; Y99.9 Unspecified external cause status | CPT/HCPCS: 82270; 83630; 87177; 87209; 87493; 87506 ==

== ENCOUNTER → 2023-05-27 13:03 | Outpatient (BNVA) | payer MEDICARE, MEDICAID, SELFPAY | PROVIDERS: PCP Family Medicine; Visit Provider Nurse Practitioner Family | DX: N39.0 Urinary tract infection, site not specified (principal) | CPT/HCPCS: 81000; 87086 ==

== ENCOUNTER → 2023-06-12 13:58 | Outpatient (BNVA) | payer MEDICARE, MEDICAID, OTHER, SELFPAY | PROVIDERS: PCP Family Medicine; Visit Provider Emergency Medicine | DX: R30.0 Dysuria (principal) | CPT/HCPCS: 81000 ==

== ENCOUNTER → 2023-08-18 15:05 | Outpatient (BNVA) | payer MEDICARE, MEDICAID, SELFPAY | PROVIDERS: PCP Family Medicine; Visit Provider Family Medicine | DX: K59.4 Anal spasm (principal); M62.838 Other muscle spasm; Z13.6 Encounter for screening for cardiovascular disorders; Z12.5 Encounter for screening for malignant neoplasm of prostate | CPT/HCPCS: 80053; 80061; 83735; 85025; 85651; 86140; G0103 ==

== ENCOUNTER → 2023-09-30 14:29 | Outpatient (BNVA) | payer MEDICARE, MEDICAID, SELFPAY | PROVIDERS: PCP Family Medicine; Visit Provider Family Medicine | DX: M25.469 Effusion, unspecified knee (principal) | CPT/HCPCS: 73562; 83880; 85651; 86038; 86140 ==

== ENCOUNTER → 2024-04-07 15:44 | Outpatient (BNVA) | payer MEDICARE, MEDICAID, OTHER, SELFPAY | PROVIDERS: PCP Family Medicine; Visit Provider Nurse Practitioner Family | DX: R53.83 Other fatigue (principal); R63.5 Abnormal weight gain; M25.50 Pain in unspecified joint; T50.905A Adverse effect of unspecified drugs, medicaments and biological substances, initial encounter | CPT/HCPCS: 80053; 82306; 82607; 84443; 85025 ==

== ENCOUNTER → 2024-04-19 08:18 | Outpatient (BNVA) | payer MEDICARE, SELFPAY | PROVIDERS: PCP Family Medicine; Visit Provider Psychiatry & Neurology Psychiatry | DX: Z79.899 Other long term (current) drug therapy (principal) | CPT/HCPCS: 80061; 83036; 83721 ==

== ENCOUNTER → 2024-08-31 14:02 | Outpatient (BNVA) | payer OTHER, SELFPAY ==
[2024-04-28 13:21] VITALS: BP 148/97; BMI 27.7
== END ==
PROVIDERS: PCP Family Medicine; Visit Provider Nurse Practitioner Family
DX: I49.8 Other specified cardiac arrhythmias (principal); R07.9 Chest pain, unspecified; R06.09 Other forms of dyspnea; R94.31 Abnormal electrocardiogram [ECG] [EKG]
CPT/HCPCS: 80053; 85025; 93005

== ENCOUNTER → 2025-01-06 13:49 | Outpatient (BNVA) | payer MEDICARE, OTHER, SELFPAY ==
[2024-04-28 13:21] VITALS: BP 148/97; BMI 27.7
== END ==
PROVIDERS: PCP Family Medicine; Visit Provider Psychiatry & Neurology Psychiatry
DX: Z79.899 Other long term (current) drug therapy (principal)
CPT/HCPCS: 80061; 83036